=== PATIENT | female | born 2000 | race Native Hawaiian/Other Pacific Islander ===

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

== ENCOUNTER 2019-09-29 11:47 | Emergency (ER) | payer OTHER ==
[2019-09-29 12:00] VITALS: RESP 20
[2019-09-29] MEDS ORDERED: ONDANSETRON 4 MG/2 ML VIAL IVP STA (12:15)
[2019-09-29] MEDS ORDERED: SODIUM CHLORIDE 0.9% 1,000 ML IV STA (12:15)
[2019-09-29] MEDS ORDERED: KETOROLAC 30 MG/ML 1 ML VIAL IVP STA (12:15)
[2019-09-29 12:52] LABS: Basophils % (A) 0 %; Eosinophils % (A) 0 %; HCT 44.3 % (34.0-46.0); HGB 15.3 gm/dL (11.4-16.0); Lymphocytes # (A) 1.3 k/uL (1.0-4.8); Lymphocytes % (A) 9 %; MCH 29.2 pg (25.0-35.0); MCHC 34.5 g/dL (31.0-37.0); MCV 84.8 fL (80.0-100.0); Mean Platelet Volume 5.5; Monocytes # (A) 0.4 k/uL (0-1.0); Monocytes % (A) 3 %; Neutrophils # (A) 12.8 k/uL (1.3-7.7); Neutrophils % (A) 88 %; Platelet Count 318 k/uL (150-450); RBC 5.22 m/uL (3.80-5.40); RDW 12.5 % (11.5-15.5); WBC 14.6 k/uL (4.0-11.0)
[2019-09-29 13:00] LABS: Amorphous Sediment,Urine Rare /hpf; Appearance,Urine Cloudy (Clear); Bacteria,Urine Rare /hpf; Bilirubin,Urine Negative (Negative); Blood,Urine Trace (Negative); Color,Urine Yellow; Glucose,Urine (UA) Negative (Negative); Ketones,Urine Negative (Negative); Leukocyte Esterase,Urine Trace (Negative); Mucus,Urine Rare /hpf; Nitrite,Urine Negative (Negative); PH, Urine 6.5 (5.0-8.0); Protein,Urine Negative (Negative); RBC,Urine 2 /hpf (0-5); Specific Gravity,Urine 1.019 (1.001-1.035); Squamous Epithelial Cell,Urine 1 /hpf (0-4); Urobilinogen,Urine <2.0 mg/dL (<2.0)
--- NOTE | 2019-09-29 13:04 | XR ---
EXAMINATION TYPE: XR chest 2V DATE OF EXAM: 09/29/2019 COMPARISON: NONE HISTORY: Fever. TECHNIQUE: Frontal and lateral views of the chest are obtained. FINDINGS: There is no focal air space opacity, pleural effusion, or pneumothorax seen. The cardiac silhouette size is within normal limits. The osseous structures are intact. IMPRESSION: No acute cardiopulmonary process.
[2019-09-29 13:07] VITALS: PULSE 107
[2019-09-29] MEDS ORDERED: ACETAMINOPHEN TAB 500 MG TAB PO STA (13:08)
[2019-09-29 13:09] LABS: ALT 19 U/L (9-52); AST 20 U/L (14-36); African American GFR (CKD) >90 (>60 ml/min/1.73 sqM); Albumin 4.5 g/dL (3.5-5.0); Alkaline Phosphatase 109 U/L (38-126); Anion Gap 10 mmol/L; Blood Urea Nitrogen 7 mg/dL (7-17); Calcium 10.3 mg/dL (8.4-10.2); Carbon Dioxide 25 mmol/L (22-30); Chloride 103 mmol/L (98-107); Glucose 99 mg/dL (74-99); Non-African American GFR(CKD) >90 (>60 ml/min/1.73 sqM); Potassium 4.3 mmol/L (3.5-5.1); Sodium 138 mmol/L (137-145); Total Bilirubin 0.6 mg/dL (0.2-1.3); Total Protein 7.4 g/dL (6.3-8.2)
--- NOTE | 2019-09-29 13:39 | ED ---
Headache HPI - General Mode of arrival: ambulatory Limitations: no limitations <Deepali Durham - Last Filed: 09/29/19 14:28> <Jarrod Diaz - Last Filed: 09/29/19 14:59> - General Chief Complaint: Headache Stated Complaint: HEADACHE, FEVER, ABDOMINAL PAIN Time Seen by Provider: 09/29/19 11:54 - History of Present Illness Initial Comments: Patient is a 18-year-old female presenting to the emergency Department with complaints of a headache and a fever 1 day. Patient states she was sent over from Dr. Coles's office. Patient states she felt under the weather and also had body aches and a headache yesterday. Patient states she woke up this morning still having a severe headache along with a fever, abdominal pain and vomiting. Patient then went into her doctor's office who then sent her to the ER. Patient states she's never had a headache this bad before. Patient denies any recent coughing, runny nose, chest pain, shortness of breath. Patient has no pertinent past medical history and takes no medications. Patient denies history of abdominal surgeries. Patient has been having regular bowel movements and has no urinary complaints. Patient has no other complaints at this time. Upon arrival to the ER, patient is febrile at 102, heart rate is 136, BP is 134/91, 99% on room air, respiratory rate 20. (Deepali Durham) - Related Data Previous Rx's Medication Instructions Recorded Cephalexin [Keflex] 500 mg PO Q6HR #40 cap 09/08/14 Allergies Allergy/AdvReac Type Severity Reaction Status Date / Time No Known Allergies Allergy Verified 10/29/18 13:44 Review of Systems ROS Other: All systems not noted in ROS Statement are negative. <Deepali Durham - Last Filed: 09/29/19 14:28> ROS Other: All systems not noted in ROS Statement are negative. <Jarrod Diaz - Last Filed: 09/29/19 14:59> ROS Statement: Those systems with pertinent positive or pertinent negative responses have been documented in the HPI. Past Medical History Past Medical History: No Reported History History of Any Multi-Drug Resistant Organisms: None Reported Past Surgical History: No Surgical Hx Reported, Tonsillectomy Past Psychological History: Depression Smoking Status: Never smoker Past Alcohol Use History: None Reported Past Drug Use History: None Reported <Deepali Durham - Last Filed: 09/29/19 14:28> General Exam Limitations: no limitations <Deepali Durham - Last Filed: 09/29/19 14:28> - General Exam Comments Initial Comments: GENERAL: Well-appearing, well-nourished and in no acute distress. HEAD: Atraumatic, normocephalic. EYES: Pupils equal round and reactive to light, extraocular movements intact, sclera anicteric, conjunctiva are normal. ENT: TMs normal, nares patent, oropharynx clear without exudates. Moist mucous memb ranes. NECK: Normal range of motion, supple without lymphadenopathy or JVD. Patient has increased pain with neck flexion. LUNGS: Breath sounds clear to auscultation bilaterally and equal. No wheezes rales or rhonchi. HEART: Regular rate and rhythm without murmurs, rubs or gallops. ABDOMEN: Tender to palpation in the epigastric and right upper quadrant. Soft, normoactive bowel sounds. No guarding, no rebound. No masses appreciated. : Deferred EXTREMITIES: Normal range of motion, no pitting or edema. No clubbing or cyanosis. NEUROLOGICAL: Cranial nerves II through XII grossly intact. Normal speech, normal gait. PSYCH: Normal mood, normal affect. SKIN: Warm, Dry, normal turgor, no rashes or lesions noted. (Deepali Durham) Course Vital Signs 09/29/19 09/29/19 09/29/19 11:56 12:59 13:05 Temperature 102 F H 102.2 F H Pulse Rate 136 H 107 H Respiratory 20 20 Rate Blood Pressure 134/91 124/79 O2 Sat by Pulse 99 98 96 Oximetry 09/29/19 09/29/19 09/29/19 13:10 13:20 13:30 Temperature Pulse Rate Respiratory Rate Blood Pressure 124/79 124/79 124/79 O2 Sat by Pulse 97 98 97 Oximetry 09/29/19 09/29/19 09/29/19 13:40 13:50 14:00 Temperature 101.0 F H Pulse Rate Respiratory 20 Rate Blood Pressure O2 Sat by Pulse 99 98 97 Oximetry 09/29/19 09/29/19 14:10 14:27 Temperature Pulse Rate Respiratory 20 Rate Blood Pressure 118/70 O2 Sat by Pulse 98 Oximetry Medical Decision Making - Lab Data Result diagrams: 09/29/19 12:37 09/29/19 12:37 <Deepali Durham - Last Filed: 09/29/19 14:28> - Lab Data Result diagrams: 09/29/19 12:37 09/29/19 12:37 <Jarrod Diaz - Last Filed: 09/29/19 14:59> - Medical Decision Making Patient is a 18-year-old female presenting with fever and a headache 1 day. Patient was febrile on arrival at 102 and tachycardia at 136. Labs reveal slight leukocytosis at 14.6. CMP is normal. UA shows no acute abnormalities. Influenza is negative. Chest x-ray is normal. Ultrasound of the gallbladder is normal. Case was discussed in detail with Dr. Diaz. Dr. Diaz discussed with patient risks versus benefits of LP and patient declined at this time. Patient is stable for discharge at this time. Patient will continue with Tylenol for fever control. Strict return parameters were discussed with the patient she verbalized understanding. (Deepali Durham) 18-year-old female presenting for evaluation of fever and chills, myalgias, epigastric abdominal pain and headache. Patient is well-appearing on evaluation. She is alert and oriented, she is on her phone. She has had symptoms for 24-48 hours. After antipyretics and IV fluids are heart rate is normalized. Her blood pressure remained stable. I discussed on 2 separate occasions the possibility of meningitis both viral and bacterial. Patient is immunized. I have a very low suspicion for bacterial meningitis but this was still in the differential. I discussed the risks and benefits of lumbar puncture and at this time patient declines. She does have her boyfriend home and prefers to treat her symptoms at home she will return with any worsening or changing symptoms. (Jarrod Diaz) - Lab Data Lab Results 09/29/19 09/29/19 09/29/19 Range/Units 12:37 12:37 12:37 WBC 14.6 H (4.0-11.0) k/uL RBC 5.22 (3.80-5.40) m/uL Hgb 15.3 (11.4-16.0) gm/dL Hct 44.3 (34.0-46.0) % MCV 84.8 (80.0-100.0) fL MCH 29.2 (25.0-35.0) pg MCHC 34.5 (31.0-37.0) g/dL RDW 12.5 (11.5-15.5) % Plt Count 318 (150-450) k/uL Neutrophils % 88 % Lymphocytes % 9 % Monocytes % 3 % Eosinophils % 0 % Basophils % 0 % Neutrophils # 12.8 H (1.3-7.7) k/uL Lymphocytes # 1.3 (1.0-4.8) k/uL Monocytes # 0.4 (0-1.0) k/uL Eosinophils # 0.0 (0-0.7) k/uL Basophils # 0.0 (0-0.2) k/uL Sodium 138 (137-145) mmol/L Potassium 4.3 (3.5-5.1) mmol/L Chloride 103 (98-107) mmol/L Carbon Dioxide 25 (22-30) mmol/L Anion Gap 10 mmol/L BUN 7 (7-17) mg/dL Creatinine 0.67 (0.52-1.04) mg/dL Est GFR (CKD-EPI)AfAm >90 (>60 ml/min/1.73 sqM) Est GFR (CKD-EPI)NonAf >90 (>60 ml/min/1.73 sqM) Glucose 99 (74-99) mg/dL Plasma Lactic Acid Sy (0.7-2.0) mmol/L Calcium 10.3 H (8.4-10.2) mg/dL Total Bilirubin 0.6 (0.2-1.3) mg/dL AST 20 (14-36) U/L ALT 19 (9-52) U/L Alkaline Phosphatase 109 (38-126) U/L Total Protein 7.4 (6.3-8.2) g/dL Albumin 4.5 (3.5-5.0) g/dL Urine Color Urine Appearance (Clear) Urine pH (5.0-8.0) Ur Specific Gordon (1.001-1.035) Urine Protein (Negative) Urine Glucose (UA) (Negative) Urine Ketones (Negative) Urine Blood (Negative) Urine Nitrite (Negative) Urine Bilirubin (Negative) Urine Urobilinogen (<2.0) mg/dL Ur Leukocyte Esterase (Negative) Urine RBC (0-5) /hpf Urine WBC (0-5) /hpf Ur Squamous Epith Cells (0-4) /hpf Amorphous Sediment (None) /hpf Urine Bacteria (None) /hpf Urine Mucus (None) /hpf Urine HCG, Qual Not Detected (Not Detectd) Influenza Type A RNA (Not Detectd) Influenza Type B (PCR) (Not Detectd) 09/29/19 09/29/19 09/29/19 Range/Units 12:37 12:37 12:37 WBC (4.0-11.0) k/uL RBC (3.80-5.40) m/uL Hgb (11.4-16.0) gm/dL Hct (34.0-46.0) % MCV (80.0-100.0) fL MCH (25.0-35.0) pg MCHC (31.0-37.0) g/dL RDW (11.5-15.5) % Plt Count (150-450) k/uL Neutrophils % % Lymphocytes % % Monocytes % % Eosinophils % % Basophils % % Neutrophils # (1.3-7.7) k/uL Lymphocytes # (1.0-4.8) k/uL Monocytes # (0-1.0) k/uL Eosinophils # (0-0.7) k/uL Basophils # (0-0.2) k/uL Sodium (137-145) mmol/L Potassium (3.5-5.1) mmol/L Chloride (98-107) mmol/L Carbon Dioxide (22-30) mmol/L Anion Gap mmol/L BUN (7-17) mg/dL Creatinine (0.52-1.04) mg/dL Est GFR (CKD-EPI)AfAm (>60 ml/min/1.73 sqM) Est GFR (CKD-EPI)NonAf (>60 ml/min/1.73 sqM) Glucose (74-99) mg/dL Plasma Lactic Acid Sy 1.2 (0.7-2.0) mmol/L Calcium (8.4-10.2) mg/dL Total Bilirubin (0.2-1.3) mg/dL AST (14-36) U/L ALT (9-52) U/L Alkaline Phosphatase (38-126) U/L Total Protein (6.3-8.2) g/dL Albumin (3.5-5.0) g/dL Urine Color Yellow Urine Appearance Cloudy H (Clear) Urine pH 6.5 (5.0-8.0) Ur Specific Gordon 1.019 (1.001-1.035) Urine Protein Negative (Negative) Urine Glucose (UA) Negative (Negative) Urine Ketones Negative (Negative) Urine Blood Trace H (Negative) Urine Nitrite Negative (Negative) Urine Bilirubin Negative (Negative) Urine Urobilinogen <2.0 (<2.0) mg/dL Ur Leukocyte Esterase Trace H (Negative) Urine RBC 2 (0-5) /hpf Urine WBC 3 (0-5) /hpf Ur Squamous Epith Cells 1 (0-4) /hpf Amorphous Sediment Rare H (None) /hpf Urine Bacteria Rare H (None) /hpf Urine Mucus Rare H (None) /hpf Urine HCG, Qual (Not Detectd) Influenza Type A RNA Not Detected (Not Detectd) Influenza Type B (PCR) Not Detected (Not Detectd) Disposition Is patient prescribed a controlled substance at d/c from ED?: No <Deepali Durham - Last Filed: 09/29/19 14:28> <Jarrod Diaz - Last Filed: 09/29/19 14:59> Clinical Impression: Headache, Viral syndrome Disposition: HOME SELF-CARE Condition: Stable Instructions (If sedation given, give patient instructions): Acute Headache (ED) Additional Instructions: Please return to the Emergency Department if symptoms worsen or any other concerns. Continue with Tylenol and/or Motrin for pain and fever control. Follow up with Dr. Coles as needed. Referrals: Sophie Coles MD [Primary Care Provider] - 1-2 days
--- NOTE | 2019-09-29 14:02 | US ---
EXAMINATION TYPE: US gallbladder DATE OF EXAM: 09/29/2019 COMPARISON: NONE CLINICAL HISTORY: pain. EXAM MEASUREMENTS: Liver Length: 14.8 cm Gallbladder Wall: 0.2 cm CBD: 0.3 cm Right Kidney: 11.2 x4.9 x 4.9 cm Morbidly obese patient who ate 3 hours prior. Extensive overlying bowel gas. Limited and technically difficult study. Pancreas: Obscured by bowel gas Liver: Increased attenuation, very limited visualization Gallbladder: limited visualization, appears wnl as seen Evidence for sonographic Baires's sign: no CBD: limited visualization, appears wnl as seen Right Kidney: inferior pole obscured by overlying bowel gas, otherwise appears wnl Suboptimal evaluation of pancreas on images saved visualized liver heterogeneously hyperechoic. Evalu ation for focal masses suboptimal. Suboptimal study due to body habitus and nonideal protocol as lidia ent ate 3 hours earlier. Gallbladder however is seen without shadowing mobile gallstones. IMPRESSION: Suboptimal study, no shadowing mobile gallstones identified or ultrasound evidence for ac alysia cholecystitis.
[2019-09-29 14:07] VITALS: TEMP 101
[2019-09-29 14:11] VITALS: BP 118/70
== END 2019-09-29 14:32 | disposition home or self-care (01) ==
LOC: EC 11:47
DX: B34.9 Viral infection, unspecified (principal)
CPT/HCPCS: 36415; 80053; 83605; 85025; 81001; 81025; 87502; 71046; 76705; 99284; 96374; 96375; 96361; J2405; J1885

== ENCOUNTER → 2020-02-22 | Outpatient (CLI) | payer OTHER ==
--- NOTE | 2020-02-22 09:39 | US ---
EXAMINATION TYPE: Ultrasound OB <= 14 week transvaginal DATE OF EXAM: 02/22/2020 9:07 AM COMPARISON: NONE CLINICAL HISTORY: 19 year-old female Bleeding O46.91. Bleeding for 1 week, started to get heavier tod ay EXAM PERFORMED: Transvaginal (TV) and Transabdominal (TA) FINDINGS: EXAM MEASUREMENTS: GESTATIONAL AGE / DATING Physician Established: Not yet established Dates by LMP: (10 weeks/0 days) EDC: 09/19/20 Dates by First Scan: No previous this is first scan Dates by Current Scan for: (9 weeks/1 days) EDC: 09/25/20 MATERNAL ANATOMY Uterus: 8.1 x 4.2 x 6.2cm Right Ovary: 2.1 x 1.5 x 1.6cm Left Ovary: 2.5 x 1.9 x 2.1cm Post CDS / Adnexa: appears wnl Presence of free fluid: no Presence of corpus luteal cyst: cystic area left ovary = 1.4 x 1.4 x 1.5cm GESTATION / SURVEY CRL: 2.4cm (9 weeks/1 days) Yolk Sac (normal less than 6mm): 0.4cm Heart Rate: 167 bpm Rhythm: Normal IUP: Viable IUP Date of LMP: 12/14/19 Beta HcG (if available): Not available at this time Power Sewing Machine Operator notes: single viable IUP 9wks/1day with AURA of 09/25/20. Probable corpus luteum left ovar y. Simple paraovarian cyst right ovary = 1.0 x 0.9 x 1.0cm IMPRESSION: 1. Single live intrauterine with estimated gestational age of 10 weeks 0 days by LMP. Curre nt ultrasound biometry is smaller by 6 days (measured at 9 weeks 1 day by crown-rump length). Follow- up as clinically indicated. 2. No sizable perigestational bleed is identified. 3. Otherwise, complete survey recommended at 18-20 weeks.
== END | disposition home or self-care (01) ==
LOC: RADUSWWP 08:41
PROVIDERS: ATTEND Obstetrics & Gynecology Obstetrics
DX: Z3A.10 10 weeks gestation of pregnancy (principal); O20.0 Threatened abortion
CPT/HCPCS: 36415; 76801; 76817; 84702; 86850; 86900; 86901

== ENCOUNTER → 2020-03-05 | Outpatient (CLI) | payer OTHER | END | disposition home or self-care (01) | LOC: LABWHC1 12:38 | PROVIDERS: ATTEND Obstetrics & Gynecology Obstetrics | DX: U07.1 COVID-19 (principal) | CPT/HCPCS: 87635 ==

== ENCOUNTER → 2020-03-06 | Outpatient (CLI) | payer OTHER | END | disposition home or self-care (01) | LOC: LABWHC1 09:38 | PROVIDERS: ATTEND Obstetrics & Gynecology Obstetrics | DX: Z53.9 Procedure and treatment not carried out, unspecified reason (principal) ==

== ENCOUNTER 2020-03-07 06:22 | Day surgery (SDC) | payer OTHER ==
[2020-03-06 08:54] VITALS: BMI 42.5
[2020-03-06 11:15] LABS: Basophils % (A) 0 %; Eosinophils # (A) 0.1 k/uL (0-0.7); Eosinophils % (A) 2 %; HCT 40.6 % (34.0-46.0); HGB 13.1 gm/dL (11.4-16.0); Lymphocytes # (A) 2.4 k/uL (1.0-4.8); Lymphocytes % (A) 27 %; MCH 28.3 pg (25.0-35.0); MCHC 32.3 g/dL (31.0-37.0); MCV 87.5 fL (80.0-100.0); Mean Platelet Volume 7.4; Monocytes # (A) 0.3 k/uL (0-1.0); Monocytes % (A) 4 %; Neutrophils # (A) 5.6 k/uL (1.3-7.7); Neutrophils % (A) 65 %; Platelet Count 299 k/uL (150-450); RBC 4.64 m/uL (3.80-5.40); RDW 13.1 % (11.5-15.5); WBC 8.6 k/uL (4.0-11.0)
[~2020-03-07 06:22] MED LIST: Pre Op ABX Message 1 EACH MISC MISCELLANE ONE
[2020-03-07] MEDS ORDERED: LACTATED RINGERS 1,000 ML IV ONE (06:40)
[2020-03-07] MEDS ORDERED: LIDOCAINE 1% (10MG/ML) FOR IV START INTRADERMA ONE (06:40)
[2020-03-07] MEDS ORDERED: ONDANSETRON 4 MG/2 ML VIAL IVP ONE (06:44)
[2020-03-07] MEDS ORDERED: DEXAMETHASONE SOD PHOS (MDV) 100 MG/10 ML VIAL IVP ONE (06:45)
[2020-03-07] MEDS ORDERED: KETOROLAC 30 MG/ML 1 ML VIAL ONE (08:03)
[2020-03-07] MEDS ORDERED: PROPOFOL 10 MG/ML 20 ML VIAL IV ONE (08:03)
[2020-03-07] MEDS ORDERED: MIDAZOLAM 2 MG/2 ML VIAL ONE (08:03)
[2020-03-07] MEDS ORDERED: LIDOCAINE 1% INJ 10MG/ML (20 ML MDV) ONE (08:03)
--- NOTE | 2020-03-07 08:33 | P.OP ---
Date of Procedure: 03/07/20 Preoperative Diagnosis: Missed AB Postoperative Diagnosis: Same Procedure(s) Performed: Suction dilation and curettage Anesthesia: MAC Surgeon: Haylee Felder Estimated Blood Loss (ml): 5 IV fluids (ml): 300 Urine output (ml): 100 Pathology: other (Uterine contents) Condition: stable Disposition: PACU Indications for Procedure: This pleasant 19-year-old 1 para 0 seen in the office for routine visit at her new OB visit. Heart tones were not able to be dopplered therefore ultrasound was obtained consistent with missed AB at 9 weeks. Patient elected suction dilation and curettage. Surgery was reviewed risks were explained QUESTIONS were answered. Patient is Rh+ Operative Findings: Moderate amount of products of conception Description of Procedure: Patient was taken back to the operating suite where general anesthesia was obtained without difficulty by the anesthesia . She was prepped and draped in normal sterile fashion in the dorsal lithotomy position. A red rubber catheter was used to drain the bladder of clear yellow urine. Weighted speculum was placed in the posterior vaginal vault the interval of the cervix was visualized and grasped with a single-tooth tenaculum. Endocervical canal was then dilated and an 8 curved suction curette was placed into the endometrial cavity and after multiple passes a moderate amount of products of conception were removed. Sharp curettage was gently performed. The suction curet was placed once again to ensure all products were removed. The uterus was noted to be firm at this time the single-tooth tenaculum was taken off of the anterior lip of the cervix hemostasis was appreciated. Next Patient tolerated procedure well all counts were correct 2 patient was taken the recovery room awake in stable condition.
[2020-03-07 08:43] VITALS: TEMP 98.7
[2020-03-07] MEDS ORDERED: HYDROmorphone 0.5 MG/0.5 ML SYRINGE IVP ONE (09:05)
[2020-03-07 09:24] VITALS: RESP 18
[2020-03-07 09:33] VITALS: BP 116/61; PULSE 82
== END 2020-03-07 10:14 | disposition home or self-care (01) ==
LOC: OR 06:22
PROVIDERS: ATTEND Obstetrics & Gynecology Obstetrics
DX: O02.1 Missed abortion (principal); O99.611 Diseases of the digestive system complicating pregnancy, first trimester; K21.9 Gastro-esophageal reflux disease without esophagitis; Z3A.09 9 weeks gestation of pregnancy; Z90.89 Acquired absence of other organs; Z83.3 Family history of diabetes mellitus; Z83.42 Family history of familial hypercholesterolemia
CPT/HCPCS: 59820; 86900; 86901; 88305; 85025; 86850; 36415; J2250; J2405; J2001; J1885; J1100; J2704; J1170

== ENCOUNTER 2020-04-18 02:29 | Emergency (ER) | payer OTHER ==
[2020-04-18 02:34] VITALS: RESP 20
[2020-04-18] MEDS ORDERED: ONDANSETRON 4 MG/2 ML VIAL IVP STA (03:06)
[2020-04-18] MEDS ORDERED: SODIUM CHLORIDE 0.9% 1,000 ML IV STA (03:06)
--- NOTE | 2020-04-18 03:11 | ED ---
Headache HPI - General Chief Complaint: Headache Stated Complaint: Headache Time Seen by Provider: 04/18/20 02:58 Mode of arrival: ambulatory Limitations: no limitations - History of Present Illness Initial Comments: This patient is 19-year-old woman who presents with complaint of bifrontal headache as well as nasal congestion and pressure. Patient states this is been going on over the past 1-2 days. In addition this afternoon she noted she was having a fever. The patient took an rxju-oef-zcerloe medication which she states relieved the headache and she was able to sleep. When she woke she had some that he then was having vomiting so she presented here. Complaint: headache Onset/Timin -: days(s) Onset Description: gradual Location: right, left, frontal Severity: moderate Quality: other (Pressure) Consistency: constant Improves With: nothing Worsens With: none Associated Symptoms: fever Treatments Prior to Arrival: Ibuprofen - Related Data Previous Rx's Medication Instructions Recorded Amoxicillin 875 mg PO Q12HR #14 tablet 04/18/20 Allergies Allergy/AdvReac Type Severity Reaction Status Date / Time No Known Allergies Allergy Verified 04/18/20 02:33 Review of Systems ROS Statement: Those systems with pertinent positive or pertinent negative responses have been documented in the HPI. ROS Other: All systems not noted in ROS Statement are negative. Constitutional: Reports: fever, chills ENT: Reports: throat pain, congestion Respiratory: Denies: cough, dyspnea Cardiovascular: Denies: chest pain, palpitations Gastrointestinal: Reports: nausea, vomiting. Denies: abdominal pain, diarrhea Genitourinary: Denies: dysuria, frequency, hematuria Musculoskeletal: Denies: back pain Skin: Denies: rash Neurological: Denies: headache, weakness, numbness Past Medical History Past Medical History: No Reported History Additional Past Medical History / Comment(s): MISCARRIAGE History of Any Multi-Drug Resistant Organisms: None Reported Past Surgical History: Tonsillectomy Additional Past Surgical History / Comment(s): d&C Past Anesthesia/Blood Transfusion Reactions: No Reported Reaction Past Psychological History: Anxiety, Depression Smoking Status: Never smoker Past Alcohol Use History: None Reported Past Drug Use History: None Reported - Past Family History Mother Family Medical History: No Reported History General Exam Limitations: no limitations General appearance: alert, in no apparent distress Head exam: Present: atraumatic, normocephalic Eye exam: Present: normal appearance. Absent: scleral icterus, conjunctival injection ENT exam: Present: mucous membranes moist, other (Injection of the pharynx) Neck exam: Present: normal inspection, full ROM, lymphadenopathy. Absent: tenderness, meningismus Respiratory exam: Present: normal lung sounds bilaterally. Absent: respiratory distress, wheezes, rales, rhonchi, stridor Cardiovascular Exam: Present: normal rhythm, tachycardia, normal heart sounds. Absent: systolic murmur, diastolic murmur, rubs, gallop GI/Abdominal exam: Present: soft. Absent: tenderness, guarding, rebound, mass Extremities exam: Present: normal inspection, normal capillary refill. Absent: pedal edema, calf tenderness Back exam: Present: normal inspection. Absent: CVA tenderness (R), CVA tenderness (L) Neurological exam: Present: alert Skin exam: Present: warm, dry, intact, normal color. Absent: rash Course Vital Signs 04/18/20 02:29 Temperature 100.7 F H Pulse Rate 123 H Respiratory 20 Rate Blood Pressure 156/89 O2 Sat by Pulse 98 Oximetry Medical Decision Making - Medical Decision Making Laboratory evaluation, the patient is feeling somewhat better. Her headache resolved to only minimal residual. I did discuss that the only way to rule out meningitis is to perform lumbar puncture, and the patient does not want to have that performed at this time. Again there is no nuchal rigidity or neck pain. Patient does agree to return should she be worsening in anyway. I did discuss further follow-up and management of acute sinusitis. I did provide antibiotic to take should her symptoms persist, but not to take until that stage. - Lab Data Result diagrams: 04/18/20 03:04 04/18/20 03:04 Lab Results 04/18/20 04/18/20 04/18/20 Range/Units 03:04 03:04 03:04 WBC 18.1 H (4.0-11.0) k/uL RBC 5.05 (3.80-5.40) m/uL Hgb 14.1 (11.4-16.0) gm/dL Hct 43.5 (34.0-46.0) % MCV 86.3 (80.0-100.0) fL MCH 27.9 (25.0-35.0) pg MCHC 32.4 (31.0-37.0) g/dL RDW 12.6 (11.5-15.5) % Plt Count 277 (150-450) k/uL Neutrophils % 93 % Lymphocytes % 4 % Monocytes % 2 % Eosinophils % 0 % Basophils % 0 % Neutrophils # 16.8 H (1.3-7.7) k/uL Lymphocytes # 0.7 L (1.0-4.8) k/uL Monocytes # 0.4 (0-1.0) k/uL Eosinophils # 0.0 (0-0.7) k/uL Basophils # 0.0 (0-0.2) k/uL Sodium 136 L (137-145) mmol/L Potassium 4.0 (3.5-5.1) mmol/L Chloride 104 (98-107) mmol/L Carbon Dioxide 24 (22-30) mmol/L Anion Gap 8 mmol/L BUN 9 (7-17) mg/dL Creatinine 0.73 (0.52-1.04) mg/dL Est GFR (CKD-EPI)AfAm >90 (>60 ml/min/1.73 sqM) Est GFR (CKD-EPI)NonAf >90 (>60 ml/min/1.73 sqM) Glucose 114 H (74-99) mg/dL Calcium 9.6 (8.4-10.2) mg/dL Total Bilirubin 0.4 (0.2-1.3) mg/dL AST 23 (14-36) U/L ALT 21 (4-34) U/L Alkaline Phosphatase 104 (38-126) U/L Total Protein 7.6 (6.3-8.2) g/dL Albumin 4.5 (3.5-5.0) g/dL Urine Color Urine Appearance (Clear) Urine pH (5.0-8.0) Ur Specific [place] (1.001-1.035) Urine Protein (Negative) Urine Glucose (UA) (Negative) Urine Ketones (Negative) Urine Blood (Negative) Urine Nitrite (Negative) Urine Bilirubin (Negative) Urine Urobilinogen (<2.0) mg/dL Ur Leukocyte Esterase (Negative) Urine RBC (0-5) /hpf Urine WBC (0-5) /hpf Ur Squamous Epith Cells (0-4) /hpf Amorphous Sediment (None) /hpf Urine Mucus (None) /hpf Urine HCG, Qual (Not Detectd) Heterophile Antibody Negative (Negative) Group A Strep Rapid (Negative) 04/18/20 04/18/20 04/18/20 Range/Units 03:15 03:18 03:18 WBC (4.0-11.0) k/uL RBC (3.80-5.40) m/uL Hgb (11.4-16.0) gm/dL Hct (34.0-46.0) % MCV (80.0-100.0) fL MCH (25.0-35.0) pg MCHC (31.0-37.0) g/dL RDW (11.5-15.5) % Plt Count (150-450) k/uL Neutrophils % % Lymphocytes % % Monocytes % % Eosinophils % % Basophils % % Neutrophils # (1.3-7.7) k/uL Lymphocytes # (1.0-4.8) k/uL Monocytes # (0-1.0) k/uL Eosinophils # (0-0.7) k/uL Basophils # (0-0.2) k/uL Sodium (137-145) mmol/L Potassium (3.5-5.1) mmol/L Chloride (98-107) mmol/L Carbon Dioxide (22-30) mmol/L Anion Gap mmol/L BUN (7-17) mg/dL Creatinine (0.52-1.04) mg/dL Est GFR (CKD-EPI)AfAm (>60 ml/min/1.73 sqM) Est GFR (CKD-EPI)NonAf (>60 ml/min/1.73 sqM) Glucose (74-99) mg/dL Calcium (8.4-10.2) mg/dL Total Bilirubin (0.2-1.3) mg/dL AST (14-36) U/L ALT (4-34) U/L Alkaline Phosphatase (38-126) U/L Total Protein (6.3-8.2) g/dL Albumin (3.5-5.0) g/dL Urine Color Yellow Urine Appearance Turbid H (Clear) Urine pH 8.0 (5.0-8.0) Ur Specific [place] 1.025 (1.001-1.035) Urine Protein Trace H (Negative) Urine Glucose (UA) Negative (Negative) Urine Ketones Trace H (Negative) Urine Blood Trace H (Negative) Urine Nitrite Negative (Negative) Urine Bilirubin Negative (Negative) Urine Urobilinogen <2.0 (<2.0) mg/dL Ur Leukocyte Esterase Small H (Negative) Urine RBC 5 (0-5) /hpf Urine WBC 5 (0-5) /hpf Ur Squamous Epith Cells 4 (0-4) /hpf Amorphous Sediment Rare H (None) /hpf Urine Mucus Occasional H (None) /hpf Urine HCG, Qual Not Detected (Not Detectd) Heterophile Antibody (Negative) Group A Strep Rapid Negative (Negative) Disposition Clinical Impression: Acute sinusitis Disposition: HOME SELF-CARE Condition: Good Instructions (If sedation given, give patient instructions): Sinusitis (ED) Prescriptions: Amoxicillin 875 mg PO Q12HR #14 tablet Is patient prescribed a controlled substance at d/c from ED?: No Referrals: Sophie Coles MD [Primary Care Provider] - 1-2 days
[2020-04-18 03:29] LABS: Amorphous Sediment,Urine Rare /hpf; Appearance,Urine Turbid (Clear); Bilirubin,Urine Negative (Negative); Blood,Urine Trace (Negative); Color,Urine Yellow; Glucose,Urine (UA) Negative (Negative); Ketones,Urine Trace (Negative); Leukocyte Esterase,Urine Small (Negative); Mucus,Urine Occasional /hpf; Nitrite,Urine Negative (Negative); Protein,Urine Trace (Negative); RBC,Urine 5 /hpf (0-5); Specific Gravity,Urine 1.025 (1.001-1.035); Squamous Epithelial Cell,Urine 4 /hpf (0-4); Urobilinogen,Urine <2.0 mg/dL (<2.0); WBC,Urine 5 /hpf (0-5)
[2020-04-18 04:17] LABS: Basophils % (A) 0 %; Eosinophils % (A) 0 %; HCT 43.5 % (34.0-46.0); HGB 14.1 gm/dL (11.4-16.0); Lymphocytes # (A) 0.7 k/uL (1.0-4.8); Lymphocytes % (A) 4 %; MCH 27.9 pg (25.0-35.0); MCHC 32.4 g/dL (31.0-37.0); MCV 86.3 fL (80.0-100.0); Mean Platelet Volume 7.5; Monocytes # (A) 0.4 k/uL (0-1.0); Monocytes % (A) 2 %; Neutrophils # (A) 16.8 k/uL (1.3-7.7); Neutrophils % (A) 93 %; Platelet Count 277 k/uL (150-450); RBC 5.05 m/uL (3.80-5.40); RDW 12.6 % (11.5-15.5); WBC 18.1 k/uL (4.0-11.0)
[2020-04-18 04:21] LABS: ALT 21 U/L (4-34); AST 23 U/L (14-36); African American GFR (CKD) >90 (>60 ml/min/1.73 sqM); Albumin 4.5 g/dL (3.5-5.0); Alkaline Phosphatase 104 U/L (38-126); Anion Gap 8 mmol/L; Blood Urea Nitrogen 9 mg/dL (7-17); Calcium 9.6 mg/dL (8.4-10.2); Carbon Dioxide 24 mmol/L (22-30); Chloride 104 mmol/L (98-107); Glucose 114 mg/dL (74-99); Non-African American GFR(CKD) >90 (>60 ml/min/1.73 sqM); Sodium 136 mmol/L (137-145); Total Bilirubin 0.4 mg/dL (0.2-1.3); Total Protein 7.6 g/dL (6.3-8.2)
--- NOTE | 2020-04-18 04:23 | XR ---
EXAMINATION TYPE: XR chest 2V DATE OF EXAM: 04/18/2020 COMPARISON: 09/29/2019 HISTORY: Fever. FINDINGS: Heart and mediastinum are normal. Lungs are clear. Diaphragm is normal. Bony thorax appears normal. P ulmonary vascularity is normal. IMPRESSION: Normal chest. No change.
[2020-04-18] MEDS ORDERED: IBUPROFEN 400 MG TAB PO STA (04:49)
[2020-04-18] MEDS ORDERED: ACETAMINOPHEN TAB 325 MG TAB PO STA (04:49)
[2020-04-18 05:31] VITALS: BP 130/75; PULSE 124; TEMP 102.3
== END 2020-04-18 05:32 | disposition home or self-care (01) ==
LOC: EC 02:29
DX: J01.90 Acute sinusitis, unspecified (principal); Z20.828 Contact with and (suspected) exposure to other viral communicable diseases
CPT/HCPCS: 36415; 80053; 85025; 86308; 81001; 81025; 87081; 87430; 71046; 99284; 96374; 96361 ×2; U0003; J2405

== ENCOUNTER 2021-09-02 15:46 | Emergency (ER) | payer OTHER ==
--- NOTE | 2021-09-02 19:27 | ED ---
General Adult HPI - General Chief complaint: Vaginal Bleeding Stated complaint: 8 Wks Preg,Vaginal Bleeding Time Seen by Provider: 09/02/21 18:39 Source: patient, RN notes reviewed Mode of arrival: ambulatory Limitations: no limitations - History of Present Illness Initial comments: 20-year-old female, , presents to the emergency department for evaluation of vaginal bleeding. Patient states she is 8 weeks and had a transvaginal ultrasound done yesterday at the care clinic in [facility]. States she woke up this morning with light red spotting and is concerned because she has a history of a prior miscarriage. Has an appointment scheduled next week to see her [facility]. LMP 07/10/21. Patient denies fever, chills, headache, chest pain, abdominal pain or cramping, and dysuria. - Related Data Home Medications Medication Instructions Recorded Confirmed Aspirin EC [Ecotrin Low Dose] 81 mg PO DAILY 09/02/21 09/02/21 Hwl-Rrfp-Unyej Acid 1 cap PO DAILY 09/02/21 09/02/21 [-U Capsule (formulary)] Allergies Allergy/AdvReac Type Severity Reaction Status Date / Time No Known Allergies Allergy Verified 09/02/21 20:40 Review of Systems ROS Statement: Those systems with pertinent positive or pertinent negative responses have been documented in the HPI. ROS Other: All systems not noted in ROS Statement are negative. Past Medical History Past Medical History: No Reported History Additional Past Medical History / Comment(s): MISCARRIAGE History of Any Multi-Drug Resistant Organisms: None Reported Past Surgical History: Tonsillectomy Additional Past Surgical History / Comment(s): d&C Past Anesthesia/Blood Transfusion Reactions: No Reported Reaction Past Psychological History: Anxiety, Depression Smoking Status: Never smoker Past Alcohol Use History: None Reported Past Drug Use History: None Reported - Past Family History Mother Family Medical History: No Reported History General Exam Limitations: no limitations (Well-developed, well-nourished female in no acute distress. Initial temperature 98.2, pulse 68, respirations 20, blood pressure 127/79, pulse ox 95% on room air.) General appearance: alert, in no apparent distress Respiratory exam: Present: normal lung sounds bilaterally. Absent: respiratory distress, wheezes, rales, rhonchi, stridor Cardiovascular Exam: Present: regular rate, normal rhythm, normal heart sounds. Absent: systolic murmur, diastolic murmur, rubs, gallop, clicks GI/Abdominal exam: Present: soft, normal bowel sounds. Absent: distended, tenderness, guarding, rebound, rigid Speculum exam: Present: normal speculum exam. Absent: erythema, cervical discharge, vaginal bleeding Neurological exam: Present: alert, oriented X3, CN II-XII intact Psychiatric exam: Present: normal affect, normal mood Skin exam: Present: warm, dry, intact, normal color. Absent: rash Course Vital Signs 09/02/21 09/02/21 16:26 23:23 Temperature 98.2 F 98.4 F Pulse Rate 68 72 Respiratory 20 18 Rate Blood Pressure 127/79 127/69 O2 Sat by Pulse 95 99 Oximetry Medical Decision Making - Medical Decision Making 20-year-old female, , with a history of previous miscarriage was evaluated for complaints of light red vaginal bleeding, onset this morning. Per patient, last menstrual period began July 10 making her approximately 8 weeks . No significant physical exam findings. Speculum exam reveals no vaginal bleeding or discharge at this time. Cervical os is closed. Vital signs are stable. Patient is afebrile and not tachycardic. She is not having pain or cramping. Urinalysis is negative. Ultrasound was obtained to verify heart tones. This case was discussed with my attending Dr. Ceja. Patient is scheduled to see her [facility] next week for her initial visit. Return parameters were discussed in detail. Patient verbalizes understanding and agrees with this plan. - Lab Data Lab Results 09/02/21 Range/Units 19:32 Urine Color Light Yellow Urine Appearance Clear (Clear) Urine pH 5.5 (5.0-8.0) Ur Specific [place] 1.008 (1.001-1.035) Urine Protein Negative (Negative) Urine Glucose (UA) Negative (Negative) Urine Ketones Negative (Negative) Urine Blood Negative (Negative) Urine Nitrite Negative (Negative) Urine Bilirubin Negative (Negative) Urine Urobilinogen <2.0 (<2.0) mg/dL Ur Leukocyte Esterase Moderate H (Negative) Urine RBC 1 (0-5) /hpf Urine WBC 2 (0-5) /hpf Ur Squamous Epith Cells 1 (0-4) /hpf Urine Mucus Rare H (None) /hpf Disposition Clinical Impression: Bleeding in early Disposition: HOME SELF-CARE Condition: Stable Instructions (If sedation given, give patient instructions): Threatened Miscarriage (ED) Additional Instructions: Pelvic rest (no intercourse). Increase fluids. Keep appointment as scheduled with [facility]. Return to the emergency department with any new, worsening, or concerning symptoms. Is patient prescribed a controlled substance at d/c from ED?: No Referrals: Sophie Coles MD [Primary Care Provider] - 1-2 days Time of Disposition: 22:21
[2021-09-02 19:53] LABS: Appearance,Urine Clear (Clear); Bilirubin,Urine Negative (Negative); Blood,Urine Negative (Negative); Color,Urine Light Yellow; Glucose,Urine (UA) Negative (Negative); Ketones,Urine Negative (Negative); Leukocyte Esterase,Urine Moderate (Negative); Mucus,Urine Rare /hpf; Nitrite,Urine Negative (Negative); PH, Urine 5.5 (5.0-8.0); Protein,Urine Negative (Negative); RBC,Urine 1 /hpf (0-5); Specific Gravity,Urine 1.008 (1.001-1.035); Squamous Epithelial Cell,Urine 1 /hpf (0-4); Urobilinogen,Urine <2.0 mg/dL (<2.0); WBC,Urine 2 /hpf (0-5)
--- NOTE | 2021-09-02 22:14 | US ---
EXAMINATION TYPE: US OB limited DATE OF EXAM: 09/02/2021 COMPARISON: NONE for this . CLINICAL HISTORY: Vaginal Bleeding. Vaginal bleeding. Hx miscarriage, D and C. . EXAM PERFORMED: Transabdominal (TA) GESTATIONAL AGE / DATING Physician Established: (8 weeks/3 days) EDC: 04/11/2022 No growth performed on today?s study per ordering physician SURVEY HEART RATE: 163 bpm, a second measurement of 162 bpm. RHYTHM: Normal IMPRESSION: The ultrasound gestational age is 8 weeks and 3 days. Fetus is living.
[2021-09-02 23:24] VITALS: BP 127/69; PULSE 72; RESP 18; TEMP 98.4
== END 2021-09-02 23:17 | disposition home or self-care (01) ==
LOC: EC 15:46
DX: O20.9 Hemorrhage in early pregnancy, unspecified (principal); Z3A.08 8 weeks gestation of pregnancy
CPT/HCPCS: 76815; 81001; 99284

== ENCOUNTER 2022-04-17 17:56 | Outpatient (CLI) | payer OTHER ==
[2022-04-17 18:41] LABS: Appearance,Urine Clear (Clear); Bilirubin,Urine Negative (Negative); Blood,Urine Negative (Negative); Color,Urine Light Yellow; Glucose,Urine (UA) Negative (Negative); Ketones,Urine Negative (Negative); Leukocyte Esterase,Urine Trace (Negative); Mucus,Urine Rare /hpf; Nitrite,Urine Negative (Negative); PH, Urine 6.5 (5.0-8.0); Protein,Urine Negative (Negative); RBC,Urine <1 /hpf (0-5); Specific Gravity,Urine 1.005 (1.001-1.035); Squamous Epithelial Cell,Urine <1 /hpf (0-4); Urobilinogen,Urine <2.0 mg/dL (<2.0); WBC,Urine 1 /hpf (0-5)
[2022-04-17 19:13] VITALS: BP 142/91; PULSE 87; RESP 16; TEMP 98.3
--- NOTE | 2022-04-18 10:59 | P.MSEPDOC ---
Presenting Problems - Arrival Data Date of Arrival on Unit: 04/17/22 Time of Arrival on Unit: 17:56 Mode of Transport: Ambulatory - Complaint OB-Reason for Admission/Chief Complaint: Signs/Symptoms UTI Comment: pt here with c/o of burning and frequency with urination, abd soft and non tender, left flank pain noted, pt denies complications during , denies lof, reports loss of mucous plug last night, denies regular contractions and reports + fm Medical History - Information : 1 Para: 0 Term: 0 : 0 Abortions: Spontaneous or Elective: 0 Number of Living Children: 0 - Gestational Age Gestational Age by AURA (wks/days): 40 Weeks and 1 Days Review of Systems - Review of Systems Constitutional: No problems Breast: No problems ENT: No problems Cardiovascular: No problems Respiratory: No problems Gastrointestinal: No problems Genitourinary: Increased frequency Musculoskeletal: No problems Neurological: No problems Skin: No problems Vital Signs - Temperature Temperature: 98.3 F - Pulse Right Brachial Pulse Rate: 87 Pulse Assessment Method: Automatic Cuff - Respirations Respiratory Rate: 16 Oxygen Delivery Method: Room Air - Blood Pressure Right Arm Blood Pressure: 142/91 Blood Pressure Mean: 108 Blood Pressure Source: Automatic Cuff - Comment Vital Signs Comment: BP recheck 139/87 130/79 Medical Screen Scoring - Assessment - Baby A Baseline FHR: 135 Heart Rate - NICHD Category: Category I (Normal) NST: Reactive Physician Notification - Physician Notified Physician Notified Date: 04/17/22 Physician Notified Time: 18:50 Physician: Chuy Costello New Order Received: Yes (dc home) Maternal Triage Index - Non-Urgent/Priority 4 Non-Urgent Priority 4: Yes Criteria Met for Priority 4: reviewed u/a results with dr costello, pt ok to dc home at this time Disposition - Disposition OB Disposition: Discharge to home, Written follow up instructions reviewed Discharge Date: 04/17/22 Discharge Time: 19:00 I agree with the RN Medical Screening Exam: Yes Physician's MSE Comment: I have neither seen nor examined the patient. Case reviewed; plan agreed upon as documented in EMR&OBIX.: Yes Diagnosis: RELATED CONDITIONS, UNSPECIFIED, THIRD TRIMESTER
== END 2022-04-17 19:00 | disposition home or self-care (01) ==
LOC: FBPOP 17:56
PROVIDERS: ATTEND Obstetrics & Gynecology
DX: O26.93 Pregnancy related conditions, unspecified, third trimester (principal); Z3A.40 40 weeks gestation of pregnancy
CPT/HCPCS: 59025; 81001; G0463; 99213

== ENCOUNTER 2022-04-18 19:10 | Inpatient (IN) | payer OTHER ==
[2022-04-18] MEDS ORDERED: TERBUTALINE 1 MG/ML VIAL SQ PRN (19:40)
[2022-04-18] MEDS ORDERED: CARBOPROST TROMETHAMINE 250 MCG/ML 1 ML AMP IM PRN (19:40)
[2022-04-18] MEDS ORDERED: LIDOCAINE 0.5% (PF) 5 MG/ML (50 ML SDV) SQ PRN (19:40)
[2022-04-18] MEDS ORDERED: METHYLERGONOVINE 0.2 MG/ML 1 ML AMP IM PRN (19:40)
[2022-04-18] MEDS ORDERED: OXYTOCIN 10 UNIT/ML 1 ML VIAL IM PRN (19:40)
[2022-04-18] MEDS: LACTATED RINGERS 1,000 ML IV SCH (20:20)
[2022-04-18 20:21] LABS: ALT 13 U/L (4-34); AST 20 U/L (14-36); African American GFR (CKD) >90 (>60 ml/min/1.73 sqM); Blood Urea Nitrogen 5 mg/dL (7-17); LDH 485 U/L (313-618); Non-African American GFR(CKD) >90 (>60 ml/min/1.73 sqM); Uric Acid 4.7 mg/dL (3.7-7.4)
[2022-04-18 20:40] LABS: Appearance,Urine Clear (Clear); Bilirubin,Urine Negative (Negative); Blood,Urine Small (Negative); Color,Urine Light Yellow; Glucose,Urine (UA) Negative (Negative); Ketones,Urine Negative (Negative); Leukocyte Esterase,Urine Moderate (Negative); Mucus,Urine Rare /hpf; Nitrite,Urine Negative (Negative); PH, Urine 7.5 (5.0-8.0); Protein,Urine Negative (Negative); RBC,Urine 18 /hpf (0-5); Squamous Epithelial Cell,Urine 2 /hpf (0-4); Urobilinogen,Urine <2.0 mg/dL (<2.0); WBC,Urine 12 /hpf (0-5)
[2022-04-18 20:55] LABS: Creatinine,Urine Random 53.7 mg/dL; Protein/Creatinine Ratio,Urine 0.168
[2022-04-18 20:56] LABS: Basophils # (A) 0.1 k/uL (0-0.2); Basophils % (A) 0 %; Eosinophils # (A) 0.1 k/uL (0-0.7); Eosinophils % (A) 1 %; HCT 36.9 % (34.0-46.0); HGB 12.7 gm/dL (11.4-16.0); Lymphocytes # (A) 2.1 k/uL (1.0-4.8); Lymphocytes % (A) 13 %; MCH 30.3 pg (25.0-35.0); MCHC 34.5 g/dL (31.0-37.0); MCV 87.8 fL (80.0-100.0); Mean Platelet Volume 8.7; Monocytes # (A) 0.4 k/uL (0-1.0); Monocytes % (A) 3 %; Neutrophils % (A) 82 %; Platelet Count 227 k/uL (150-450); RDW 13.2 % (11.5-15.5); WBC 15.9 k/uL (3.8-10.6)
[2022-04-18] MEDS ORDERED: BUTORPHANOL 1 MG/ML 1 ML VIAL IV PRN (22:47)
--- NOTE | 2022-04-18 22:53 | P.HPOB ---
History of Present Illness H&P Date: 04/18/22 Chief Complaint: 40-2/7 weeks, active labor The patient is a 21-year-old 2 para 0010 admitted at 40-2/7 weeks by last menstrual period and confirmed by second trimester ultrasound. She is admitted in early active labor with all signs reassuring. Her has b een uncomplicated and group B strep status is negative. On labor and delivery, all signs reassuring with a category 1 heart rate tracing. Obstetrical history: 2 para 0010 with current statistics listed in history of present illness. EDC of 04/16/2022 was established by last menstrual period and confirmed by second trimester ultrasound. Laboratory workup demonstrates a blood type of B+ with a negative antibody screen. Rubella status is immune. The remainder of the laboratory workup was within normal limits. Early Glucola was within normal limits and second trimester was also within normal limits. Group B strep status is negative. Gynecologic history: Unremarkable with no history of any infections to include STDs. Review of Systems Review of systems is within normal limits. Past Medical History Past Medical History: No Reported History Additional Past Medical History / Comment(s): MISCARRIAGE History of Any Multi-Drug Resistant Organisms: None Reported Past Surgical History: Tonsillectomy Additional Past Surgical History / Comment(s): d&C Past Anesthesia/Blood Transfusion Reactions: No Reported Reaction Past Psychological History: Anxiety, Depression Smoking Status: Never smoker Past Alcohol Use History: None Reported Past Drug Use History: None Reported - Past Family History Mother Family Medical History: No Reported History Medications and Allergies Home Medications Medication Instructions Recorded Confirmed Type Lar-Jouq-Uhrvy Acid 1 cap PO DAILY 09/02/21 04/17/22 History [-U Capsule (formulary)] Allergies Allergy/AdvReac Type Severity Reaction Status Date / Time No Known Allergies Allergy Verified 04/18/22 19:19 Exam Vital Signs Temp Pulse Resp BP Pulse Ox 04/18/22 19:40 98.0 F 104 H 16 177/97 97 04/18/22 19:18 98.0 F 104 H 16 177/97 97 Intake and Output 04/18/22 04/18/22 04/18/22 06:59 14:59 22:59 Other: Weight 127.006 kg In general, this is a well-developed, mild to moderately obese white female in no acute distress. Her heart has a regular rhythm and rate without murmur. Her lungs are clear to auscultation bilaterally in all [place]. Her abdomen is grav id, nondistended, has normal active bowel sounds, soft, nontender, and without any palpable masses aside from the uterine fundus. Her extremities are without any cyanosis, clubbing, or significant edema and are nontender to palpation bilaterally. Digital cervical examination demonstrates her surgery approximate 7 cm dilated, 90% effaced, with the vertex in presentation at -1 station. Artificial rupture membranes is carried out demonstrating clear fluid. Results Result Diagrams: 04/18/22 19:56 04/18/22 19:56 Abnormal Lab Results - Last 24 Hours (Table) 04/18/22 04/18/22 04/18/22 Range/Units 19:56 :56 20:00 WBC 15.9 H (3.8-10.6) k/uL Neutrophils # 13.0 H (1.3-7.7) k/uL BUN 5 L (7-17) mg/dL Urine Blood Small H (Negative) Ur Leukocyte Esterase Moderate H (Negative) Urine RBC 18 H (0-5) /hpf Urine WBC 12 H (0-5) /hpf Urine Mucus Rare H (None) /hpf Assessment and Plan (1) Active labor at term Current Visit: Yes Status: Acute Code(s): [id number] - SNOMED Code(s): 06485144 Plan: The patient is admitted for active management of labor. She will have close maternal surveillance and expectant management will be practiced. She is a good candidate for either IV or epidural analgesia, whichever she may choose.
[2022-04-19] MEDS: LACTATED RINGERS 1,000 ML IV SCH (00:03)
[2022-04-19] MEDS ORDERED: HYDROcodone/APAP 5-325MG 1 EACH TAB PO PRN (03:48)
[2022-04-19] MEDS ORDERED: HYDROCORTISONE 2.5% RECTAL CREAM 30 GM TUBE RECTAL PRN (03:48)
[2022-04-19] MEDS ORDERED: SIMETHICONE 80 MG CHEWABLE PO PRN (03:48)
[2022-04-19] MEDS ORDERED: diphenhydrAMINE 50 MG/ML 1 ML VIAL IVP PRN ×2 (03:48)
[2022-04-19] MEDS ORDERED: BENZOCAINE/MENTHOL SPRAY 1 GM/SPRAY AEROSOL TOPICAL PRN (03:48)
[2022-04-19] MEDS ORDERED: ZOLPIDEM 5 MG TAB PO PRN (03:48)
[2022-04-19] MEDS ORDERED: ACETAMINOPHEN TAB 325 MG TAB PO PRN (03:48)
[2022-04-19] MEDS ORDERED: LANOLIN CREAM 5 GM TUBE TOPICAL PRN (03:48)
[2022-04-19] MEDS ORDERED: HYDROcodone/APAP 7.5-325MG 1 EACH TAB PO PRN (03:48)
[2022-04-19] MEDS ORDERED: diphenhydrAMINE 50 MG CAP PO PRN (03:48)
[2022-04-19] MEDS ORDERED: diphenhydrAMINE 25 MG CAP PO PRN (03:48)
--- NOTE | 2022-04-19 03:52 | P.PROBDLV ---
Vaginal Delivery Note - . Vaginal Delivery Note: The patient is a 21-year-old 2 para 0010 admitted at 40-12/07 I good dating parameters perches admitted in early active labor with all signs reassuring. Her has been essentially uncomplicated and group B strep status is negative. On labor and delivery, she made progress into the active phase of labor and had artificial rupture of membranes at approximately 7 cm of dilation at which time there is a suggestion of light meconium-stained fluid. She had an epidural catheter placed for analgesia. She then progressed slowly over the next several hours to complete and pushed over the course of approximately 1 hour to a normal spontaneous vaginal delivery of a viable 6 lbs. 9 oz. baby girl delivered in the right occiput anterior position. There was a loose nuchal cord 1 which was reduced on the perineum. There was noted to be thick meconium-stained fluid after the baby's head was delivered. The placenta was delivered spontaneously, intact, and grossly normal though it was deeply meconium stained. There was a grossly normal three-vessel cord inserted approximately 3 cm from the margin of the placental disc. It was a second- degree midline perineal laceration was repaired in standard fashion using 3-0 chromic catgut without difficulty. Estimated blood loss for the case was approximately 300 mL. There were no complications. All sponge, instrument, needle counts were correct. Both mother and are resting comfortably in recovery though the has been taken to the special care nursery for observation secondary to some tachypnea and retracting of intercostal muscles with breathing.
[2022-04-19] MEDS ORDERED: OXYTOCIN 30 UNITS/500 ML NS 30 UNIT in SALINE 1 500ML.BAG IV SCH (04:00)
[2022-04-19] MEDS: IBUPROFEN 600 MG TAB PO PRN ×4 (04:43→22:40)
[2022-04-19] MEDS: SENNOSIDES-DOCUSATE SODIUM 1 EACH TAB PO SCH ×2 (20:02→20:03)
[2022-04-20 07:16] LABS: Basophils % (A) 0 %; Eosinophils # (A) 0.1 k/uL (0-0.7); Eosinophils % (A) 1 %; HCT 32.3 % (34.0-46.0); HGB 10.8 gm/dL (11.4-16.0); Lymphocytes # (A) 2.3 k/uL (1.0-4.8); Lymphocytes % (A) 23 %; MCHC 33.4 g/dL (31.0-37.0); Mean Platelet Volume 8.2; Monocytes # (A) 0.3 k/uL (0-1.0); Monocytes % (A) 3 %; Neutrophils # (A) 7.3 k/uL (1.3-7.7); Neutrophils % (A) 71 %; Platelet Count 192 k/uL (150-450); RBC 3.59 m/uL (3.80-5.40); RDW 13.6 % (11.5-15.5); WBC 10.2 k/uL (3.8-10.6)
[2022-04-20] MEDS: SENNOSIDES-DOCUSATE SODIUM 1 EACH TAB PO SCH ×2 (08:53→20:00)
--- NOTE | 2022-04-20 13:10 | P.PNOBGVD ---
Subjective - Subjective Principal diagnosis: day one, status post normal spontaneous vaginal delivery Interval history: Patient is doing well . She is ambulating and voiding without difficulty. She is tolerating regular diet without nausea or vomiting. Lochia is moderate. She is pumping as the nursery is in the special care nursery for oxygen treatment. Patient had thick meconium-stained fluid upon delivery. Patient reports: Reports appetite normal, Reports voiding normally, Reports pain well controlled, Reports ambulating normally [place]: doing well Objective - Latest Vital Signs Latest vital signs: Vital Signs Temp Pulse Resp BP Pulse Ox 04/20/22 12:00 97.4 F L 92 16 131/72 04/20/22 08:00 98.5 F 97 16 123/77 04/20/22 00:00 98.5 F 93 16 116/69 98 04/19/22 20:00 98.3 F 95 18 116/77 100 04/19/22 16:00 98.2 F 92 16 123/82 Intake and Output 04/19/22 04/20/22 04/20/22 22:59 06:59 14:59 Other: # Voids 1 - Exam Extremities: Present: normal, edema Abdomen: Present: normal appearance Uterus: Present: normal, firm - Labs Labs: Abnormal Lab Results - Last 24 Hours (Table) 04/20/22 Range/Units 07:02 RBC 3.59 L (3.80-5.40) m/uL Hgb 10.8 L (11.4-16.0) gm/dL Hct 32.3 L (34.0-46.0) % Assessment and Plan (1) Active labor at term Current Visit: Yes Status: Acute Code(s): [id number] - SNOMED Code(s): 91976991 (2) Meconium in amniotic fluid affecting management of mother Current Visit: Yes Status: Acute Code(s): O36.8990 - MATERNAL CARE FOR OTH PROBLEMS, UNSP TRIMESTER, UNSP SNOMED Code(s): 19731632 (3) Normal spontaneous vaginal delivery Current Visit: Yes Status: Acute Code(s): O80 - ENCOUNTER FOR FULL-TERM UNCOMPLICATED DELIVERY SNOMED Code(s): 78289190 (4) Nuchal cord, delivered, current hospitalization Current Visit: Yes Status: Acute Code(s): O69.81X0 - LABOR AND DEL COMP BY CORD AROUND NECK, W/O COMPRSN, UNSP SNOMED Code(s): 271105736 (5) Perineal laceration during delivery Current Visit: Yes Status: Acute Code(s): O70.9 - PERINEAL LACERATION DURING DELIVERY, UNSPECIFIED SNOMED Code(s): 791851381 Plan: Patient is doing well . Infant remains in special care nursery for oxygen treatment but doing well. Anticipate discharge home tomorrow. Continue routine care.
[2022-04-21] MEDS: IBUPROFEN 600 MG TAB PO PRN (00:05)
--- NOTE | 2022-04-21 07:12 | P.DS ---
Providers Date of admission: 04/18/22 19:35 Expected date of discharge: 04/21/22 Attending physician: Haylee Felder Primary care physician: Stated None - Discharge Diagnosis(es) (1) Active labor at term Current Visit: Yes Status: Acute (2) Meconium in amniotic fluid affecting management of mother Current Visit: Yes Status: Acute (3) Normal spontaneous vaginal delivery Current Visit: Yes Status: Acute (4) Nuchal cord, delivered, current hospitalization Current Visit: Yes Status: Acute (5) Perineal laceration during delivery Current Visit: Yes Status: Acute Hospital Course: 21-year-old admitted at 40-2/7 weeks in active labor. Patient had been receiving routine care with been essentially uncomplicated. Patient was noted to be 7 cm upon admission with meconium-stained fluid appreciated upon rupture of membranes. Patient did receive an epidural for pain control. Patient had a normal spontaneous vaginal delivery of a viable female infant weight of 6 lbs. 9 oz. Patient did sustain a secondary midline perineal laceration during delivery. This was repaired in usual fashion. Patient has done well . On this day #2 she is ambulatory and voiding without difficulty. She is tolerating regular diet without nausea or vomiting. She states her pain is well-controlled. remains in special care nursery as tachypnea was noted at delivery with suspicion for aspiration of meconium. Patient states she is off oxygen and they are working on feeding currently. Patient Condition at Discharge: Good Plan - Discharge Summary Discharge Rx Participant: No New Discharge Prescriptions: No Action Ole-Fyre-Jzwlw Acid [-U Capsule (formulary)] 1 cap PO DAILY Discharge Medication List Pmt-Onkg-Eyesd Acid [-U Capsule (formulary)] 1 cap PO DAILY 09/02/21 [History] Follow up Appointment(s)/Referral(s): Haylee Felder DO [Doctor of Osteopathic Medicine] - 4 Weeks Patient Instructions/Handouts: Vaginal Delivery (GEN), Vaginal Delivery (DC) Discharge Disposition: HOME SELF-CARE
[2022-04-21 09:16] VITALS: BP 126/70; PULSE 95; RESP 16; TEMP 98.6
== END 2022-04-21 15:22 | disposition home or self-care (01) | DRG 807 ==
LOC: FBPOP 19:10 → 4FBP 19:35
PROVIDERS: ADMIT Obstetrics & Gynecology; ATTEND Obstetrics & Gynecology Obstetrics
PROC: 10907ZC Drainage of Amniotic Fluid, Therapeutic from Products of Conception, Via Natural or Artificial Opening (ICD-10-PCS; principal; 2022-04-19)
PROC: 3E033VJ Introduction of Other Hormone into Peripheral Vein, Percutaneous Approach (ICD-10-PCS; principal; 2022-04-19)
PROC: 4A0HXCZ Measurement of Products of Conception, Cardiac Rate, External Approach (ICD-10-PCS; principal; 2022-04-19)
PROC: 10E0XZZ Delivery of Products of Conception, External Approach (ICD-10-PCS; principal; 2022-04-19)
DX: O69.81X0 Labor and delivery complicated by cord around neck, without compression, not applicable or unspecified (principal); O77.0 Labor and delivery complicated by meconium in amniotic fluid; O70.1 Second degree perineal laceration during delivery; F32.A Depression, unspecified; Z37.0 Single live birth; F41.9 Anxiety disorder, unspecified; O99.214 Obesity complicating childbirth; E66.9 Obesity, unspecified; O99.344 Other mental disorders complicating childbirth; Z3A.40 40 weeks gestation of pregnancy
CPT/HCPCS: 59025; 81001; 82565; 82570; 83615; 84112; 84156; 84450; 84460; 84520; 84550; 85025; 86850; 86900; 86901; 99213

== ENCOUNTER 2022-08-05 01:56 | Emergency (ER) | payer OTHER ==
[2022-08-05 02:09] VITALS: RESP 18
[2022-08-05] MEDS ORDERED: KETOROLAC 15 MG/ML 1 ML VIAL IVP STA (02:13)
[2022-08-05] MEDS ORDERED: SODIUM CHLORIDE 0.9% 1,000 ML IV STA (02:13)
[2022-08-05] MEDS ORDERED: MORPHINE SULFATE 4 MG/ML SYRINGE IV STA (02:18)
[2022-08-05] MEDS ORDERED: METOCLOPRAMIDE 5 MG/ML 2 ML VIAL IVP STA (02:18)
[2022-08-05] MEDS ORDERED: diphenhydrAMINE 50 MG/ML 1 ML VIAL IVP STA (02:18)
--- NOTE | 2022-08-05 02:25 | ED ---
Abdominal Pain HPI - General Chief Complaint: Abdominal Pain Stated Complaint: Abdominal Pain, Vomiting Time Seen by Provider: 08/05/22 02:11 Source: patient, RN notes reviewed Mode of arrival: ambulatory - History of Present Illness Initial Comments: This is a pleasant 21-year-old female who presents to the emergency department complaining of pain to her right upper quadrant which started about 9 PM. Patient states she ate steak and potatoes for dinner and then the pain dev eloped. Patient also has had vomiting. No hematemesis or coffee-ground emesis. Patient has no significant past medical history. Patient has had a D&C previously for a miscarriage. Patient states she just took a home test yesterday after missing her menses which was positive. Last menstrual period was July 01. Patient states pain is sharp in nature, exacerbated by palpation and sometimes deep breathing. However, patient denies any respiratory distress or cough. No alleviating factors. No headache, no fever or chills, no changes in vision or hearing, no sore throat or difficulty with speech, no neck pain, no chest pain or shortness of breath, no changes in urination or bowel movements, no numbness or tingling, no extremity pain, no skin rashes or lesions. Past medical, surgical, social, and family history reviewed. MD Complaint: abdominal pain - Related Data Home Medications Medication Instructions Recorded Confirmed Nvs-Bdgf-Etdnu Acid 1 cap PO DAILY 09/02/21 04/17/22 [-U Capsule (formulary)] Allergies Allergy/AdvReac Type Severity Reaction Status Date / Time No Known Allergies Allergy Verified 08/05/22 02:09 Review of Systems ROS Statement: Those systems with pertinent positive or pertinent negative responses have been documented in the HPI. ROS Other: All systems not noted in ROS Statement are negative. Past Medical History Past Medical History: No Reported History Additional Past Medical History / Comment(s): MISCARRIAGE History of Any Multi-Drug Resistant Organisms: None Reported Past Surgical History: Tonsillectomy Additional Past Surgical History / Comment(s): d&C Past Anesthesia/Blood Transfusion Reactions: No Reported Reaction Past Psychological History: Anxiety, Depression Smoking Status: Never smoker, Vaper Past Alcohol Use History: None Reported Past Drug Use History: None Reported - Past Family History Mother Family Medical History: No Reported History General Exam - General Exam Comments Initial Comments: Nontoxic appearing female in mild distress secondary to right upper quadrant pain. General appearance: alert, in distress Head exam: Present: atraumatic, normocephalic, normal inspection Eye exam: Present: normal appearance, PERRL, EOMI. Absent: scleral icterus, conjunctival injection, periorbital swelling ENT exam: Present: normal exam, mucous membranes moist Neck exam: Present: normal inspection. Absent: tenderness, meningismus, lymphadenopathy Respiratory exam: Present: normal lung sounds bilaterally. Absent: respiratory distress, wheezes, rales, rhonchi, stridor Cardiovascular Exam: Present: regular rate, normal rhythm, normal heart sounds. Absent: systolic murmur, diastolic murmur, rubs, gallop, clicks GI/Abdominal exam: Present: soft, tenderness (Right upper quadrant), guarding (Right upper quadrant), normal bowel sounds, other (No lower abdominal or pelvic pain). Absent: distended, rebound, rigid Extremities exam: Present: normal inspection, full ROM, normal capillary refill. Absent: tenderness, pedal edema, joint swelling, calf tenderness Back exam: Present: normal inspection Neurological exam: Present: alert, oriented X3, CN II-XII intact Psychiatric exam: Present: normal affect, normal mood Skin exam: Present: warm, dry, intact, normal color. Absent: rash Course Vital Signs 08/05/22 02:05 Temperature 98.3 F Pulse Rate 83 Respiratory 18 Rate Blood Pressure 135/87 O2 Sat by Pulse 100 Oximetry - Reevaluation(s) Reevaluation #1: 08/05/22 03:26 Patient reevaluated and feels much better. Patient essentially asymptomatic. Nausea has resolved. Patient not tender. Medical Decision Making - Medical Decision Making Symptomology most consistent with biliary colic and gallbladder pathology. Patient does not appear to be ill or toxic. I believe cholecystitis or ascending cholangitis is unlikely. Not consistent with appendicitis. Does not appear to be consistent with genitourinary pathology. Patient did have a posi tive test yesterday but has no pelvic pain. No vaginal bleeding. No vaginal discharge. No abdominal pain elsewhere or pelvic tenderness. This is unlikely to be ectopic . Patient's last menstrual period was July 01. Consistent with a very early . Does not appear to be consistent with cardiopulmonary disease Patient likely has biliary colic mild elevation in hepatic enzymes. No evidence of infectious process. Bilirubin was normal. We'll get a gallbladder ultrasound in the morning as the patient is essentially asymptomatic at discharge, repeat abdominal exam was benign. Patient will be given follow-up with Dr. Villalba Patient agrees with this treatment plan. Discussed gallbladder diet. Patient was told to return to the ER for any signs or symptoms worsen. Told to return immediately if any other problems arise. All questions answered. Treatment plan discussed. Patient in agreement Every effort has been made to ensure accuracy of this dictation. However, due to the limitations of electronic medical records and dictation devices, errors in charting still occur. Idea Worker Dr. Ramirez - Lab Data Result diagrams: 08/05/22 02:29 08/05/22 02:29 Lab Results 08/05/22 08/05/22 08/05/22 Range/Units 02:29 02:29 02:29 WBC 10.4 (3.8-10.6) k/uL RBC 4.68 (3.80-5.40) m/uL Hgb 12.5 (11.4-16.0) gm/dL Hct 37.2 (34.0-46.0) % MCV 79.6 L (80.0-100.0) fL MCH 26.7 (25.0-35.0) pg MCHC 33.5 (31.0-37.0) g/dL RDW 13.8 (11.5-15.5) % Plt Count 274 (150-450) k/uL MPV 7.9 Neutrophils % 77 % Lymphocytes % 17 % Monocytes % 4 % Eosinophils % 2 % Basophils % 0 % Neutrophils # 8.0 H (1.3-7.7) k/uL Lymphocytes # 1.7 (1.0-4.8) k/uL Monocytes # 0.4 (0-1.0) k/uL Eosinophils # 0.2 (0-0.7) k/uL Basophils # 0.0 (0-0.2) k/uL Sodium (137-145) mmol/L Potassium (3.5-5.1) mmol/L Chloride (98-107) mmol/L Carbon Dioxide (22-30) mmol/L Anion Gap mmol/L BUN (7-17) mg/dL Creatinine (0.52-1.04) mg/dL Est GFR (CKD-EPI)AfAm (>60 ml/min/1.73 sqM) Est GFR (CKD-EPI)NonAf (>60 ml/min/1.73 sqM) Glucose (74-99) mg/dL Calcium (8.4-10.2) mg/dL Total Bilirubin (0.2-1.3) mg/dL AST (14-36) U/L ALT (4-34) U/L Alkaline Phosphatase (38-126) U/L Total Protein (6.3-8.2) g/dL Albumin (3.5-5.0) g/dL Lipase (23-300) U/L Urine Color Yellow Urine Appearance Turbid H (Clear) Urine pH 8.0 (5.0-8.0) Ur Specific Grant 1.019 (1.001-1.035) Urine Protein Negative (Negative) Urine Glucose (UA) Negative (Negative) Urine Ketones Negative (Negative) Urine Blood Negative (Negative) Urine Nitrite Negative (Negative) Urine Bilirubin Negative (Negative) Urine Urobilinogen <2.0 (<2.0) mg/dL Ur Leukocyte Esterase Negative (Negative) Ur Squamous Epith Cells 1 (0-4) /hpf Amorphous Sediment Few H (None) /hpf Urine HCG, Qual Detected (Not Detectd) 08/05/22 Range/Units 02:29 WBC (3.8-10.6) k/uL RBC (3.80-5.40) m/uL Hgb (11.4-16.0) gm/dL Hct (34.0-46.0) % MCV (80.0-100.0) fL MCH (25.0-35.0) pg MCHC (31.0-37.0) g/dL RDW (11.5-15.5) % Plt Count (150-450) k/uL MPV Neutrophils % % Lymphocytes % % Monocytes % % Eosinophils % % Basophils % % Neutrophils # (1.3-7.7) k/uL Lymphocytes # (1.0-4.8) k/uL Monocytes # (0-1.0) k/uL Eosinophils # (0-0.7) k/uL Basophils # (0-0.2) k/uL Sodium 138 (137-145) mmol/L Potassium 4.1 (3.5-5.1) mmol/L Chloride 106 (98-107) mmol/L Carbon Dioxide 22 (22-30) mmol/L Anion Gap 10 mmol/L BUN 8 (7-17) mg/dL Creatinine 0.62 (0.52-1.04) mg/dL Est GFR (CKD-EPI)AfAm >90 (>60 ml/min/1.73 sqM) Est GFR (CKD-EPI)NonAf >90 (>60 ml/min/1.73 sqM) Glucose 92 (74-99) mg/dL Calcium 9.2 (8.4-10.2) mg/dL Total Bilirubin 0.9 (0.2-1.3) mg/dL AST 130 H (14-36) U/L ALT 59 H (4-34) U/L Alkaline Phosphatase 76 (38-126) U/L Total Protein 6.7 (6.3-8.2) g/dL Albumin 4.1 (3.5-5.0) g/dL Lipase 113 (23-300) U/L Urine Color Urine Appearance (Clear) Urine pH (5.0-8.0) Ur Specific Grant (1.001-1.035) Urine Protein (Negative) Urine Glucose (UA) (Negative) Urine Ketones (Negative) Urine Blood (Negative) Urine Nitrite (Negative) Urine Bilirubin (Negative) Urine Urobilinogen (<2.0) mg/dL Ur Leukocyte Esterase (Negative) Ur Squamous Epith Cells (0-4) /hpf Amorphous Sediment (None) /hpf Urine HCG, Qual (Not Detectd) Disposition Clinical Impression: Biliary colic, Right upper quadrant abdominal pain, Elevated liver enzymes Disposition: HOME SELF-CARE Instructions (If sedation given, give patient instructions): Biliary Colic ( ED), Low Fat Diet (ED) Additional Instructions: Call the surgeons office at 8 AM to schedule follow-up.. Return to the ER immediately if any symptoms worsen, new symptoms arise, or any other problems develop. Return to the hospital tomorrow for gallbladder ultrasound. Adhere to a clear liquid diet until you get the ultrasound performed. Is patient prescribed a controlled substance at d/c from ED?: No Time of Disposition: 03:32
[2022-08-05 02:42] LABS: Basophils % (A) 0 %; Eosinophils # (A) 0.2 k/uL (0-0.7); Eosinophils % (A) 2 %; HCT 37.2 % (34.0-46.0); HGB 12.5 gm/dL (11.4-16.0); Lymphocytes # (A) 1.7 k/uL (1.0-4.8); Lymphocytes % (A) 17 %; MCH 26.7 pg (25.0-35.0); MCHC 33.5 g/dL (31.0-37.0); MCV 79.6 fL (80.0-100.0); Mean Platelet Volume 7.9; Monocytes # (A) 0.4 k/uL (0-1.0); Monocytes % (A) 4 %; Neutrophils % (A) 77 %; Platelet Count 274 k/uL (150-450); RBC 4.68 m/uL (3.80-5.40); RDW 13.8 % (11.5-15.5); WBC 10.4 k/uL (3.8-10.6)
[2022-08-05 02:52] LABS: ALT 59 U/L (4-34); AST 130 U/L (14-36); African American GFR (CKD) >90 (>60 ml/min/1.73 sqM); Albumin 4.1 g/dL (3.5-5.0); Alkaline Phosphatase 76 U/L (38-126); Anion Gap 10 mmol/L; Blood Urea Nitrogen 8 mg/dL (7-17); Calcium 9.2 mg/dL (8.4-10.2); Carbon Dioxide 22 mmol/L (22-30); Chloride 106 mmol/L (98-107); Glucose 92 mg/dL (74-99); Lipase 113 U/L (23-300); Non-African American GFR(CKD) >90 (>60 ml/min/1.73 sqM); Potassium 4.1 mmol/L (3.5-5.1); Sodium 138 mmol/L (137-145); Total Bilirubin 0.9 mg/dL (0.2-1.3); Total Protein 6.7 g/dL (6.3-8.2)
[2022-08-05 03:18] LABS: Amorphous Sediment,Urine Few /hpf; Appearance,Urine Turbid (Clear); Bilirubin,Urine Negative (Negative); Blood,Urine Negative (Negative); Color,Urine Yellow; Glucose,Urine (UA) Negative (Negative); Ketones,Urine Negative (Negative); Leukocyte Esterase,Urine Negative (Negative); Nitrite,Urine Negative (Negative); Protein,Urine Negative (Negative); Specific Gravity,Urine 1.019 (1.001-1.035); Squamous Epithelial Cell,Urine 1 /hpf (0-4); Urobilinogen,Urine <2.0 mg/dL (<2.0)
[2022-08-05 03:45] VITALS: BP 121/72; PULSE 87; TEMP 97.8
== END 2022-08-05 03:56 | disposition home or self-care (01) ==
LOC: EC 01:56
DX: K80.66 Calculus of gallbladder and bile duct with acute and chronic cholecystitis without obstruction (principal); R74.01 Elevation of levels of liver transaminase levels; F17.290 Nicotine dependence, other tobacco product, uncomplicated
CPT/HCPCS: 96374; 96375; 99284; 36415; 80053; 83690; 85025; 81001; 81025; J2270; J1200; J2765

== ENCOUNTER → 2022-08-05 | Outpatient (CLI) | payer OTHER ==
--- NOTE | 2022-08-05 10:52 | US ---
EXAMINATION TYPE: US gallbladder DATE OF EXAM: 08/05/2022 COMPARISON: Gallbladder ultrasound 09/29/2019. CLINICAL HISTORY: R10.11 RIGHT UPPER QUAD PAIN. TECHNIQUE: Multiple sonographic images of the right upper quadrant are obtained. FINDINGS: EXAM MEASUREMENTS: Liver Length: 13.9 cm Gallbladder Wall: 0.21 cm CBD: 0.31 cm Right Kidney: 11.4 x 4.2 x 5.3 cm REPRESENTATIVE GOVERNMENT RELATIONS NOTES:Limited by bowel gas Pancreas: Tail obscured by overlying bowel gas. Otherwise unremarkable. Liver: Echogenic . This limits evaluation for small hepatic masses. No gross evidence of solid or c ystic mass. Gallbladder: Multiple mobile tiny echogenic foci with shadowing consistent with gallstones. Contract ed appearance with no evidence of wall thickening or pericholecystic fluid. Evidence for sonographic Baires's sign: No CBD: wnl Right Kidney: wnl . No hydronephrosis, shadowing calculi, or contour deforming solid mass. IMPRESSION: 1. Cholelithiasis without evidence for acute cholecystitis. 2. Hepatic steatosis.
== END | disposition home or self-care (01) ==
LOC: RADUSWWP 10:15
PROVIDERS: ATTEND Emergency Medicine
DX: K80.20 Calculus of gallbladder without cholecystitis without obstruction (principal); K76.0 Fatty (change of) liver, not elsewhere classified
CPT/HCPCS: 76705

== ENCOUNTER 2022-08-06 00:01 | Observation (INO) | payer OTHER ==
[2022-08-06] MEDS ORDERED: KETOROLAC 15 MG/ML 1 ML VIAL IVP STA (00:51)
[2022-08-06] MEDS ORDERED: ONDANSETRON 4 MG/2 ML VIAL IVP STA (00:51)
[2022-08-06] MEDS ORDERED: HYDROmorphone 0.5 MG/0.5 ML SYRINGE IVP STA (00:51)
--- NOTE | 2022-08-06 01:00 | ED ---
Abdominal Pain HPI - General Chief Complaint: Abdominal Pain Stated Complaint: abd pain Time Seen by Provider: 08/06/22 00:55 Source: patient, RN notes reviewed Mode of arrival: ambulatory - History of Present Illness Initial Comments: This is a 21 year old female who presents to the emergency department for abdominal pain. She was evaluated here yesterday and found to have gallstones on the ultrasound. She had no evidence for acute cholecystitis at that time. About 2 hours prior to arrival today, her pain became much worse and she has been unable to sleep or stop throwing up. The pain is still located in the RUQ. Denies any fevers. Denies any fevers, chills, sore throat, cough, dyspnea, chest pain, palpitations, diarrhea, or headaches. MD Complaint: abdominal pain Location: RUQ Associated Symptoms: nausea, vomiting - Related Data Home Medications Medication Instructions Recorded Confirmed Dzi-Ufjk-Ldlif Acid 1 cap PO DAILY 09/02/21 04/17/22 [-U Capsule (formulary)] Allergies Allergy/AdvReac Type Severity Reaction Status Date / Time No Known Allergies Allergy Verified 08/05/22 02:09 Review of Systems ROS Statement: Those systems with pertinent positive or pertinent negative responses have been documented in the HPI. ROS Other: All systems not noted in ROS Statement are negative. Past Medical History Past Medical History: No Reported History Additional Past Medical History / Comment(s): MISCARRIAGE, gall stones History of Any Multi-Drug Resistant Organisms: None Reported Past Surgical History: Tonsillectomy Additional Past Surgical History / Comment(s): d&C Past Anesthesia/Blood Transfusion Reactions: No Reported Reaction Past Psychological History: Anxiety, Depression Smoking Status: Never smoker, Vaper Past Alcohol Use History: None Reported Past Drug Use History: None Reported - Past Family History Mother Family Medical History: No Reported History General Exam General appearance: alert, in distress Head exam: Present: atraumatic, normocephalic, normal inspection Respiratory exam: Present: normal lung sounds bilaterally. Absent: respiratory distress, wheezes, rales, rhonchi, stridor Cardiovascular Exam: Present: regular rate, normal rhythm, normal heart sounds. Absent: systolic murmur, diastolic murmur, rubs, gallop, clicks GI/Abdominal exam: Present: soft, tenderness (RUQ), normal bowel sounds. Absent: distended Expanded GI/Abdominal exam: Present: Baires's sign Neurological exam: Present: alert, oriented X3, CN II-XII intact Psychiatric exam: Present: normal affect, normal mood Skin exam: Present: warm, dry, intact, normal color. Absent: rash Course Vital Signs 08/06/22 00:50 Temperature 98.7 F Pulse Rate 105 H Respiratory 19 Rate Blood Pressure 161/99 O2 Sat by Pulse 98 Oximetry Medical Decision Making - Medical Decision Making This is a 21 year old female who presents to the emergency department for abdominal pain. Ultrasound obtained yesterday reveals cholelithiasis without acute cholecystitis. Repeat lab work was obtained and the patient was given Toradol, Dilaudid, Zofran, and IV fluids. We subsequently found out from the urine hcg that the patient was , which she states that she was aware of. This was not disclosed to us prior to medication administration. Believes that she is 4-5 weeks . She does have elevated liver enzymes, suggesting she may have choledocholithiasis. Dr. Funes, general surgery, and Dr. Johnson, gastroenterology, were consulted, and are agreeable to seeing the patient. She will be admitted to general surgery with gastroenterology and medicine as consult. HCG Quant level ordered and pending at the time of admission. PRN Ofirmev ordered for pain, as the patient is currently NPO and prevents her from having anti-inflammatories. This case was discussed in detail with the attending ED physician. Presentation, findings, and treatment plan discussed in detail as well. - Lab Data Result diagrams: 08/06/22 01:04 08/06/22 01:04 Lab Results 08/06/22 08/06/22 08/06/22 Range/Units 01:04 01:04 01:17 WBC 8.7 (3.8-10.6) k/uL RBC 4.98 (3.80-5.40) m/uL Hgb 13.1 (11.4-16.0) gm/dL Hct 39.5 (34.0-46.0) % MCV 79.4 L (80.0-100.0) fL MCH 26.3 (25.0-35.0) pg MCHC 33.1 (31.0-37.0) g/dL RDW 13.8 (11.5-15.5) % Plt Count 286 (150-450) k/uL MPV 8.2 Neutrophils % 71 % Lymphocytes % 24 % Monocytes % 2 % Eosinophils % 2 % Basophils % 0 % Neutrophils # 6.2 (1.3-7.7) k/uL Lymphocytes # 2.1 (1.0-4.8) k/uL Monocytes # 0.2 (0-1.0) k/uL Eosinophils # 0.1 (0-0.7) k/uL Basophils # 0.0 (0-0.2) k/uL Sodium 137 (137-145) mmol/L Potassium 3.8 (3.5-5.1) mmol/L Chloride 101 (98-107) mmol/L Carbon Dioxide 22 (22-30) mmol/L Anion Gap 14 mmol/L BUN 5 L (7-17) mg/dL Creatinine 0.69 (0.52-1.04) mg/dL Est GFR (CKD-EPI)AfAm >90 (>60 ml/min/1.73 sqM) Est GFR (CKD-EPI)NonAf >90 (>60 ml/min/1.73 sqM) Glucose 101 H (74-99) mg/dL Calcium 9.3 (8.4-10.2) mg/dL Total Bilirubin 2.0 H (0.2-1.3) mg/dL AST 325 H (14-36) U/L ALT 271 H (4-34) U/L Alkaline Phosphatase 129 H (38-126) U/L Total Protein 7.3 (6.3-8.2) g/dL Albumin 4.6 (3.5-5.0) g/dL Amylase 43 (30-110) U/L Lipase 96 (23-300) U/L Urine Color Urine Appearance (Clear) Urine pH (5.0-8.0) Ur Specific [place] (1.001-1.035) Urine Protein (Negative) Urine Glucose (UA) (Negative) Urine Ketones (Negative) Urine Blood (Negative) Urine Nitrite (Negative) Urine Bilirubin (Negative) Urine Urobilinogen (<2.0) mg/dL Ur Leukocyte Esterase (Negative) Urine RBC (0-5) /hpf Urine WBC (0-5) /hpf Ur Squamous Epith Cells (0-4) /hpf Urine Mucus (None) /hpf Urine HCG, Qual Detected (Not Detectd) 08/06/22 Range/Units 01:17 WBC (3.8-10.6) k/uL RBC (3.80-5.40) m/uL Hgb (11.4-16.0) gm/dL Hct (34.0-46.0) % MCV (80.0-100.0) fL MCH (25.0-35.0) pg MCHC (31.0-37.0) g/dL RDW (11.5-15.5) % Plt Count (150-450) k/uL MPV Neutrophils % % Lymphocytes % % Monocytes % % Eosinophils % % Basophils % % Neutrophils # (1.3-7.7) k/uL Lymphocytes # (1.0-4.8) k/uL Monocytes # (0-1.0) k/uL Eosinophils # (0-0.7) k/uL Basophils # (0-0.2) k/uL Sodium (137-145) mmol/L Potassium (3.5-5.1) mmol/L Chloride (98-107) mmol/L Carbon Dioxide (22-30) mmol/L Anion Gap mmol/L BUN (7-17) mg/dL Creatinine (0.52-1.04) mg/dL Est GFR (CKD-EPI)AfAm (>60 ml/min/1.73 sqM) Est GFR (CKD-EPI)NonAf (>60 ml/min/1.73 sqM) Glucose (74-99) mg/dL Calcium (8.4-10.2) mg/dL Total Bilirubin (0.2-1.3) mg/dL AST (14-36) U/L ALT (4-34) U/L Alkaline Phosphatase (38-126) U/L Total Protein (6.3-8.2) g/dL Albumin (3.5-5.0) g/dL Amylase (30-110) U/L Lipase (23-300) U/L Urine Color Dark Yellow Urine Appearance Clear (Clear) Urine pH 7.0 (5.0-8.0) Ur Specific [place] 1.019 (1.001-1.035) Urine Protein Trace H (Negative) Urine Glucose (UA) Negative (Negative) Urine Ketones Negative (Negative) Urine Blood Negative (Negative) Urine Nitrite Negative (Negative) Urine Bilirubin 1+ H (Negative) Urine Urobilinogen 2.0 (<2.0) mg/dL Ur Leukocyte Esterase Moderate H (Negative) Urine RBC 1 (0-5) /hpf Urine WBC 3 (0-5) /hpf Ur Squamous Epith Cells 1 (0-4) /hpf Urine Mucus Occasional H (None) /hpf Urine HCG, Qual (Not Detectd) - Radiology Data Radiology results: report reviewed, image reviewed Disposition Clinical Impression: Choledocholithiasis Disposition: ADMITTED IP TO THIS HOSP Referrals: Sophie Coles MD [Primary Care Provider] - 1-2 days
[2022-08-06 01:15] LABS: Basophils % (A) 0 %; Eosinophils # (A) 0.1 k/uL (0-0.7); Eosinophils % (A) 2 %; HCT 39.5 % (34.0-46.0); HGB 13.1 gm/dL (11.4-16.0); Lymphocytes # (A) 2.1 k/uL (1.0-4.8); Lymphocytes % (A) 24 %; MCH 26.3 pg (25.0-35.0); MCHC 33.1 g/dL (31.0-37.0); MCV 79.4 fL (80.0-100.0); Mean Platelet Volume 8.2; Monocytes # (A) 0.2 k/uL (0-1.0); Monocytes % (A) 2 %; Neutrophils # (A) 6.2 k/uL (1.3-7.7); Neutrophils % (A) 71 %; Platelet Count 286 k/uL (150-450); RBC 4.98 m/uL (3.80-5.40); RDW 13.8 % (11.5-15.5); WBC 8.7 k/uL (3.8-10.6)
[2022-08-06 01:23] LABS: ALT 271 U/L (4-34); AST 325 U/L (14-36); African American GFR (CKD) >90 (>60 ml/min/1.73 sqM); Albumin 4.6 g/dL (3.5-5.0); Alkaline Phosphatase 129 U/L (38-126); Amylase 43 U/L (30-110); Anion Gap 14 mmol/L; Blood Urea Nitrogen 5 mg/dL (7-17); Calcium 9.3 mg/dL (8.4-10.2); Carbon Dioxide 22 mmol/L (22-30); Chloride 101 mmol/L (98-107); Glucose 101 mg/dL (74-99); Lipase 96 U/L (23-300); Non-African American GFR(CKD) >90 (>60 ml/min/1.73 sqM); Potassium 3.8 mmol/L (3.5-5.1); Sodium 137 mmol/L (137-145); Total Protein 7.3 g/dL (6.3-8.2)
[2022-08-06 01:31] LABS: Appearance,Urine Clear (Clear); Bilirubin,Urine 1+ (Negative); Blood,Urine Negative (Negative); Color,Urine Dark Yellow; Glucose,Urine (UA) Negative (Negative); Ketones,Urine Negative (Negative); Leukocyte Esterase,Urine Moderate (Negative); Mucus,Urine Occasional /hpf; Nitrite,Urine Negative (Negative); Protein,Urine Trace (Negative); RBC,Urine 1 /hpf (0-5); Specific Gravity,Urine 1.019 (1.001-1.035); Squamous Epithelial Cell,Urine 1 /hpf (0-4); WBC,Urine 3 /hpf (0-5)
[2022-08-06] MEDS ORDERED: ONDANSETRON 4 MG/2 ML VIAL IVP PRN (03:53)
[2022-08-06] MEDS ORDERED: NALOXONE 0.4 MG/ML 1 ML VIAL IV PRN (03:53)
[2022-08-06] MEDS ORDERED: ACETAMINOPHEN IV (For NPO) 1,000 MG in EMPTY BAG 1 BAG IVPB PRN (03:55)
[2022-08-06] MEDS: SODIUM CHLORIDE 0.9% 1,000 ML IV SCH ×3 (08:51→20:10)
[2022-08-06 09:33] LABS: Albumin 4.5 g/dL (3.5-5.0); Albumin/Globulin Ratio 1.7; Bilirubin, Conjugated 0.4 mg/dL (0.0-0.3); Bilirubin,Unconjugated 0.5 mg/dL (0.0-1.1); Globulin 2.6 g/dL; Total Bilirubin 1.8 mg/dL (0.2-1.3); Total Protein 7.1 g/dL (6.3-8.2)
[2022-08-06 10:57] LABS: Albumin 3.9 g/dL (3.5-5.0); Albumin/Globulin Ratio 1.7; Bilirubin,Unconjugated 0.4 mg/dL (0.0-1.1); Globulin 2.3 g/dL; Total Bilirubin 0.9 mg/dL (0.2-1.3); Total Protein 6.2 g/dL (6.3-8.2)
--- NOTE | 2022-08-06 11:05 | P.CONS ---
History of Present Illness - Reason for Consult Consult date: 08/06/22 Choledocholithiasis Requesting physician: Malia Hinkle - Chief Complaint Abdominal pain - History of Present Illness A pleasant 21-year-old female who presented to the emergency department with complaints of abdominal and epigastric pain that radiated to her back. She had some associated nausea and vomiting. Apparently patient had similar pain but not quite as bad 2 days prior and was seen in the emergency department and underwent ultrasound of the gallbladder showing cholelithiasis, no CBD dilation. LFTs were mildly dilated with a bilirubin 0.8 AST 130 ALT 59 phosphatase 76. The patient states she was not scheduled to see the general surgeon until the of this month and she didn't feel that she could wait that long. Continue emergency room for further evaluation. During this visit she was known to have increase in her LFTs with a bilirubin of 2.0ST 325 ALT 270 alkaline phosphatase 128. Patient was initially admitted to general surgery following which she had an urine hCG which was positive. She estimates around 4-5 weeks . She recently delivered in March, nursing is reporting that she is stating that she is planning to port later this month and through [facility]. She states that her abdominal pain has significantly improved since coming to the emergency room. She has some mild nausea but no vomiting. She denies any fevers or chills. Awaiting repeat labs, Review of Systems REVIEW OF SYSTEMS: CARDIOPULMONARY: No chest pain or shortness of breath. Gastrointestinal: Epigastric, abdominal pain radiating to her back , Now improved. No nausea no vomiting. No hematemesis, coffee-ground emesis. No rectal bleeding, or melena. GENITOURINARY: No dysuria or hematuria. MUSCULOSKELETAL: Reports normal range of motion. SKIN: No rashes. No jaundice. ENDOCRINE: No chills, fevers. No excessive weight gain or loss. No polydipsia or polyuria. PSYCHIATRIC: Unremarkable. NEUROLOGY: No change in mental status. Denies dizziness, headache. ENT: Vision unremarkable. CONSTITUTIONAL: No recent weight loss. No fever, chills, night sweats. Past Medical History Past Medical History: No Reported History Additional Past Medical History / Comment(s): MISCARRIAGE, gall stones History of Any Multi-Drug Resistant Organisms: None Reported Past Surgical History: Tonsillectomy Additional Past Surgical History / Comment(s): d&C Past Anesthesia/Blood Transfusion Reactions: No Reported Reaction Past Psychological History: Anxiety, Depression Smoking Status: Never smoker, Vaper Past Alcohol Use History: None Reported Past Drug Use History: None Reported - Past Family History Mother Family Medical History: No Reported History Medications and Allergies Home Medications Medication Instructions Recorded Confirmed Type No Known Home Medications 08/06/22 08/06/22 History Allergies Allergy/AdvReac Type Severity Reaction Status Date / Time No Known Allergies Allergy Verified 08/06/22 07:56 Physical Exam Vitals: Vital Signs Temp Pulse Resp BP Pulse Ox 08/06/22 00:50 98.7 F 105 H 19 161/99 98 Intake and Output 08/05/22 08/06/22 08/06/22 22:59 06:59 14:59 Other: Weight 124.738 kg General appearance: The patient is alert, oriented, appears in no acute distress. HET: Head is normocephalic and atraumatic. Conjunctiva pink. Sclera anicteric. Neck: Supple without lymphadenopathy. Trachea midline. Heart: S1 S2. Regular rate and rhythm. Lungs: Clear to auscultation. Abdomen: Soft, right upper quadrant tenderness to palpation, nondistended with bowel sounds. No guarding or rigidity. Skin: No rashes. No jaundice. Extremities: Normal skin color and turgor. No pedal edema. Neurological: No focal deficits. Alert and oriented x3. Results CBC & Chem 7: 08/06/22 01:04 08/06/22 01:04 Labs: Abnormal Lab Results - Last 24 Hours (Table) 08/06/22 08/06/22 08/06/22 Range/Units 01:04 01:04 01:17 MCV 79.4 L (80.0-100.0) fL BUN 5 L (7-17) mg/dL Glucose 101 H (74-99) mg/dL Total Bilirubin 2.0 H (0.2-1.3) mg/dL AST 325 H (14-36) U/L ALT 271 H (4-34) U/L Alkaline Phosphatase 129 H (38-126) U/L Urine Protein Trace H (Negative) Urine Bilirubin 1+ H (Negative) Ur Leukocyte Esterase Moderate H (Negative) Urine Mucus Occasional H (None) /hpf Comments: Gallbladder ultrasound done 08/05/2022 reports cholelithiasis without evidence for acute cholecystitis. Hepatic steatosis. Assessment and Plan (1) Elevated liver enzymes Narrative/Plan: 21-year-old female who was recently in the emergency department for right upper quadrant pain associated with nausea and vomiting that has been going on for a few days now. She was seen and examined had a ultrasound of the gallbladder that showed cholelithiasis without any CBD dilation and no evidence of acute cholecystitis. She was sent home from the emergency department and told to follow-up with general surgery. She has returned with some increased right upper quadrant pain, radiating to the center of her chest and to her back which is now improved. On this admission she had notable elevated LFTs that may be consistent with a choledochal lithiasis. However patient's symptoms have significantly improved, we will repeat LFTs. Further recommendations forthcoming. Current Visit: No Status: Acute Code(s): R74.8 - ABNORMAL LEVELS OF OTHER SERUM ENZYMES SNOMED Code(s): 601525570 (2) Right upper quadrant abdominal pain Current Visit: No Status: Acute Code(s): R10.11 - RIGHT UPPER QUADRANT PAIN SNOMED Code(s): 072958983 Plan: 1. Continue symptomatic and supportive care 2. May have clear liquid diet if okay with general surgery 3. Repeat LFTs, PT INR 4. Await recommendations from general surgery 5. No plans on ERCP Thank you for allowing us to participate in the care of the patient, the GI service will sign off, gastroenterology will not be available at the hospital this weekend and through next week. If further evaluation by gastroenterology is required the patient will need transfer as per the primary team's discretion. Dr. Kierra Johnson I agree with the dictator's note, documented as a scribe by Kelli Coleman.
--- NOTE | 2022-08-06 12:14 | P.CON ---
Consult Note - . Consult date: 08/06/22 Assessment/Plan:: Reason for consultation; medical management History of present illness; patient is a 21-year-old lady with no significant past medical history who presented to the ER because of abdominal pain. Patient was seen in the ER 2 days ago with similar symptoms and underwent ultrasound of gallbladder showing cholelithiasis, there was No CBD dilatation. Patient was scheduled to follow up outpatient with general surgery. After being discharged home patient continued to have severe abdominal pain located in the right upper quadrant. Pain was aggravated by eating. Because of this worsening pain, patient was brought back to the ER. Initially patient was given pain medications, IV fluids and antiemetics. Initial lab work did not show any elevated white count, hemoglobin was 13.1, total bilirubin was 1.8, AST was 325 ALT was 270, alk phos was 128. Patient hCG level came back elevated at 4554.8. Patient was admitted to general surgery with consult with GI. REVIEW OF SYSTEMS: CONSTITUTIONAL: No fever, no malaise, no fatigue. HEENT: No recent visual problems or hearing problems. Denied any sore throat. CARDIOVASCULAR: No chest pain, orthopnea, PND, no palpitations, no syncope. PULMONARY: No shortness of breath, no cough, no hemoptysis. GASTROINTESTINAL: As noted in the HPI NEUROLOGICAL: No headaches, no weakness, no numbness. HEMATOLOGICAL: Denies any bleeding or petechiae. GENITOURINARY: Denies any burning micturition, frequency, or urgency. MUSCULOSKELETAL/RHEUMATOLOGICAL: Denies any joint pain, swelling, or any muscle pain. ENDOCRINE: Denies any polyuria or polydipsia. The rest of the 14-point review of systems is negative. PHYSICAL EXAMINATION: GENERAL: The patient is alert and oriented x3, not in any acute distress. Well developed, well nourished. HEENT: Pupils are round and equally reacting to light. EOMI. No scleral icterus. No conjunctival pallor. Normocephalic, atraumatic. No pharyngeal erythema. No thyromegaly. CARDIOVASCULAR: S1 and S2 present. No murmurs, rubs, or gallops. PULMONARY: Chest is clear to auscultation, no wheezing or crackles. ABDOMEN: Tenderness in right upper quadrant, nondistended, normoactive bowel sounds. No palpable organomegaly. MUSCULOSKELETAL: No joint swelling or deformity. EXTREMITIES: No cyanosis, clubbing, or pedal edema. NEUROLOGICAL: Gross neurological examination did not reveal any focal deficits. SKIN: No rashes. Assessment : Choledocholithiasis Elevated LFTs Obesity First trimester Plan; Monitor LFTs. Continue IV fluids. Continue antiemetics Continue pain management per surgery MRCP ordered. GI consulted Started patient on vitamins. She needs to follow up outpatient with DISPATCHER SERVICE CHIEF. DVT prophylaxis:
[2022-08-06] MEDS: PRENATAL VIT-IRON-FOLIC ACID 1 EACH TABLET PO SCH (13:11)
--- NOTE | 2022-08-06 14:13 | P.GSHP ---
History of Present Illness H&P Date: 08/06/22 CHIEF COMPLAINT: Abdominal pain HISTORY OF PRESENT ILLNESS: This is a 21-year-old female who presents to the emergency room with right upper quadrant abdominal pain for the last 2 days. She reports symptoms started around 9 PM 2 days ago. She initially came into the ER yesterday morning around 1 AM with right upper quadrant abdominal pain and was found to have gallstones and diagnosed with biliary colic and discharged from the ER. Patient reports that she try to sleep and then did eat grilled chicken and oranges at home. Her pain continued to worsen and she started to have vomiting. She denies any fever chills or sweats. PAST MEDICAL HISTORY: See list. PAST SURGICAL HISTORY: See list. MEDICATIONS: See list. ALLERGIES: See list. SOCIAL HISTORY: No illicit drug use. REVIEW OF SYSTEMS: CONSTITUTIONAL: Denies fever or chills. HEENT: Denies blurred vision, vision changes, or eye pain. Denies hemoptysis CARDIOVASCULAR: Denies chest pain or pressure. RESPIRATORY: No shortness of breath. GASTROINTESTINAL: See HPI for pertinent findings HEMATOLOGIC: Denies bleeding disorders. GENITOURINARY: Denies any blood in urine or increased urinary frequency. SKIN: Denies pruitis. Denies rash. PHYSICAL EXAM: VITAL SIGNS: Reviewed GENERAL: Well-developed in no acute distress. HEENT: No sclera icterus. Extraocular movements grossly intact. Moist buccal mucosa. Head is atraumatic, normocephalic. No nasal drainage. ABDOMEN: Soft. Obese. Nondistended. Tenderness to palpation of the right upper quadrant NEUROLOGIC: Alert and oriented. Cranial nerves II through XII grossly intact. LABORATORY DATA: WBC is 8.7 Hgb 13.1 and platelets 286 INR 1.0 Sodium is 137 potassium 3.8 creatinine 0.69 Total bilirubin 2.0 down to 0.9 AST 325 down to 232 ALT 271 down to 261 alk phos 129 down to 117 lipase 96 Urine hCG detected IMAGING: Gallbladder ultrasound with cholelithiasis without evidence of acute cholecystitis. Hepatic steatosis ASSESSMENT: 1. Right upper quadrant abdominal pain 2. Possible Choledocholithiasis with elevated LFTs and total bilirubin 3. First trimester PLAN: -Continue to observe patient -Continue IV fluids -Continue supportive care -No surgical intervention planned -No intervention planned per GI service -Continue monitor LFTs -Start clear liquid diet Physician Geriatric Nurse Practitioner note has been reviewed by physician. Signing provider agrees with the documented findings, assessment, and plan of care. I have personally seen and examined the patient, reviewed the PIN CHASER /PAs history, exam and MDM and agree with the assessment and plan as written. Based on total visit time, I have performed more than 50% of the visit. As above: Patient admitted with suspected choledocholithiasis. Patient's liver enzymes improved today. Still having mild pain in urine is still somewhat dark. We'll repeat labs tomorrow. GI is no longer available after today. If suspicion for choledocholithiasis persist may require transfer. Past Medical History Past Medical History: No Reported History Additional Past Medical History / Comment(s): MISCARRIAGE, gall stones History of Any Multi-Drug Resistant Organisms: None Reported Past Surgical History: Tonsillectomy Additional Past Surgical History / Comment(s): d&C Past Anesthesia/Blood Transfusion Reactions: No Reported Reaction Past Psychological History: Anxiety, Depression Smoking Status: Never smoker, Vaper Past Alcohol Use History: None Reported Past Drug Use History: None Reported - Past Family History Mother Family Medical History: No Reported History Medications and Allergies Home Medications Medication Instructions Recorded Confirmed Type No Known Home Medications 08/06/22 08/06/22 History Allergies Allergy/AdvReac Type Severity Reaction Status Date / Time No Known Allergies Allergy Verified 08/06/22 07:56 Surgical - Exam Vital Signs Temp Pulse Resp BP Pulse Ox 98.7 F 105 H 19 161/99 98 08/06/22 00:50 08/06/22 00:50 08/06/22 00:50 08/06/22 00:50 08/06/22 00:50 Results - Labs 08/06/22 01:04 08/06/22 01:04 Abnormal Lab Results - Last 24 Hours (Table) 08/06/22 08/06/22 08/06/22 Range/Units 01:04 01:04 01:04 MCV 79.4 L (80.0-100.0) fL BUN 5 L (7-17) mg/dL Glucose 101 H (74-99) mg/dL Total Bilirubin 2.0 H 1.8 H (0.2-1.3) mg/dL Conjugated Bilirubin 0.4 H (0.0-0.3) mg/dL AST 325 H 325 H (14-36) U/L ALT 271 H 270 H (4-34) U/L Alkaline Phosphatase 129 H 128 H (38-126) U/L Urine Protein (Negative) Urine Bilirubin (Negative) Ur Leukocyte Esterase (Negative) Urine Mucus (None) /hpf 08/06/22 Range/Units 01:17 MCV (80.0-100.0) fL BUN (7-17) mg/dL Glucose (74-99) mg/dL Total Bilirubin (0.2-1.3) mg/dL Conjugated Bilirubin (0.0-0.3) mg/dL AST (14-36) U/L ALT (4-34) U/L Alkaline Phosphatase (38-126) U/L Urine Protein Trace H (Negative) Urine Bilirubin 1+ H (Negative) Ur Leukocyte Esterase Moderate H (Negative) Urine Mucus Occasional H (None) /hpf Diabetes panel 08/06/22 08/06/22 Range/Units 01:04 01:04 Sodium 137 (137-145) mmol/L Potassium 3.8 (3.5-5.1) mmol/L Chloride 101 (98-107) mmol/L Carbon Dioxide 22 (22-30) mmol/L BUN 5 L (7-17) mg/dL Creatinine 0.69 (0.52-1.04) mg/dL Glucose 101 H (74-99) mg/dL Calcium 9.3 (8.4-10.2) mg/dL AST 325 H 325 H (14-36) U/L ALT 271 H 270 H (4-34) U/L Alkaline Phosphatase 129 H 128 H (38-126) U/L Total Protein 7.3 7.1 (6.3-8.2) g/dL Albumin 4.6 4.5 (3.5-5.0) g/dL Calcium panel 08/06/22 08/06/22 Range/Units 01:04 01:04 Calcium 9.3 (8.4-10.2) mg/dL Albumin 4.6 4.5 (3.5-5.0) g/dL Pituitary panel 08/06/22 Range/Units 01:04 Sodium 137 (137-145) mmol/L Potassium 3.8 (3.5-5.1) mmol/L Chloride 101 (98-107) mmol/L Carbon Dioxide 22 (22-30) mmol/L BUN 5 L (7-17) mg/dL Creatinine 0.69 (0.52-1.04) mg/dL Glucose 101 H (74-99) mg/dL Calcium 9.3 (8.4-10.2) mg/dL Adrenal panel 08/06/22 08/06/22 Range/Units 01:04 01:04 Sodium 137 (137-145) mmol/L Potassium 3.8 (3.5-5.1) mmol/L Chloride 101 (98-107) mmol/L Carbon Dioxide 22 (22-30) mmol/L BUN 5 L (7-17) mg/dL Creatinine 0.69 (0.52-1.04) mg/dL Glucose 101 H (74-99) mg/dL Calcium 9.3 (8.4-10.2) mg/dL Total Bilirubin 2.0 H 1.8 H (0.2-1.3) mg/dL AST 325 H 325 H (14-36) U/L ALT 271 H 270 H (4-34) U/L Alkaline Phosphatase 129 H 128 H (38-126) U/L Total Protein 7.3 7.1 (6.3-8.2) g/dL Albumin 4.6 4.5 (3.5-5.0) g/dL
[2022-08-06] MEDS ORDERED: HYDROcodone/APAP 5-325MG 1 EACH TAB PO PRN (16:24)
[2022-08-06] MEDS ORDERED: HYDROmorphone 1 MG/ML 1 ML SYRINGE IVP PRN (16:24)
[2022-08-06] MEDS ORDERED: ACETAMINOPHEN TAB 325 MG TAB PO PRN (16:41)
[2022-08-07 00:47] VITALS: RESP 17
[2022-08-07] MEDS: SODIUM CHLORIDE 0.9% 1,000 ML IV SCH (04:00)
[2022-08-07 09:03] VITALS: BP 115/70; PULSE 75; TEMP 98.3
[2022-08-07] MEDS: PRENATAL VIT-IRON-FOLIC ACID 1 EACH TABLET PO SCH (09:11)
[2022-08-07 11:48] LABS: Basophils # (A) 0.03 X 10*3/uL (0.00-0.10); Basophils % (A) 0.4 %; Eosinophils % (A) 1.4 %; HCT 34.6 % (37.2-46.3); HGB 11.2 g/dL (12.0-15.0); Immature Grans, Automated 0.1 %; Lymphocytes # (A) 2.36 X 10*3/uL (0.90-5.00); Lymphocytes % (A) 32.7 %; MCH 26.3 pg (27.0-32.0); MCHC 32.4 g/dL (32.0-37.0); MCV 81.2 fL (80.0-97.0); Mean Platelet Volume 10.5 fL (9.5-12.2); Monocytes # (A) 0.27 X 10*3/uL (0.20-1.00); Monocytes % (A) 3.7 %; NRBC Per 100 WBC 0 /100 WBCS (0.0-0.0); Neutrophils # (A) 4.45 X 10*3/uL (1.80-7.70); Neutrophils % (A) 61.7 %; Platelet Count 273 X 10*3/uL (140-440); RBC 4.26 X 10*6/uL (4.10-5.20); RDW 13.8 % (11.5-14.5); WBC 7.22 X 10*3/uL (4.50-10.00)
[2022-08-07 11:57] LABS: Albumin 3.5 g/dL (3.8-4.9); Albumin/Globulin Ratio 1.67 (1.60-3.17); BUN/Creat Ratio 6.17 Ratio (12.00-20.00); Blood Urea Nitrogen 3.7 mg/dL (9.0-27.0); Calcium 8.4 mg/dL (8.7-10.3); Globulin 2.1 g/dL (1.6-3.3); Non-African American GFR(CKD) 129.4 (60.0-200.0); Total Bilirubin 0.4 mg/dL (0.30-1.20); Total Protein 5.6 g/dL (6.2-8.2)
[2022-08-07 12:54] LABS: INR 1.04 (0.90-1.11); Prothrombin Time 11.4 sec (9.9-11.9)
--- NOTE | 2022-09-01 08:35 | P.DS ---
Providers Date of admission: 08/06/22 11:02 Expected date of discharge: 08/07/22 Attending physician: Chidi Funes Consults: 08/06/22 03:53 Consult Physician Urgent Consulting Provider: Diandra Johnson Consult Reason/Comments: Possible choledocholithiasis Do you want consulting provider notified?: Already Contacted 08/06/22 03:57 Consult Physician Urgent Consulting Provider: Vicki Thomas Consult Reason/Comments: medical management Do you want consulting provider notified?: Yes, Notify in am Primary care physician: Sharyn Barrios [facility] Course: This a 19-year-old female who is 5 weeks . Patient is hospital for choledocholithiasis. Patient's symptoms resolved. On the day of discharge her abdomen was soft nontender. Patient will be discharged home she'll follow-up Dr. Funes next week. Plan - Discharge Summary Discharge Rx Participant: No New Discharge Prescriptions: No Action No Known Home Medications Discharge Medication List No Known Home Medications 08/06/22 [History] Follow up Appointment(s)/Referral(s): Sophie Coles MD [Primary Care Provider] - 1-2 days Chidi Funes MD [Medical Doctor] - 1 Week Discharge Disposition: HOME SELF-CARE
== END 2022-08-07 12:08 | disposition home or self-care (01) ==
LOC: EC 00:01 → 6NMEDSUR 03:53 → INTOOBSV 11:02 → OBSVTOIN 11:02 → 6NMEDSUR 11:43 → UNDODISIN 08-07 12:08
PROVIDERS: ADMIT Surgery; ATTEND Surgery
DX: O26.611 Liver and biliary tract disorders in pregnancy, first trimester (principal); K80.50 Calculus of bile duct without cholangitis or cholecystitis without obstruction; F41.9 Anxiety disorder, unspecified; F32.A Depression, unspecified; F17.290 Nicotine dependence, other tobacco product, uncomplicated; K76.0 Fatty (change of) liver, not elsewhere classified; E66.9 Obesity, unspecified; Z32.01 Encounter for pregnancy test, result positive; Z79.899 Other long term (current) drug therapy; Z3A.01 Less than 8 weeks gestation of pregnancy; Z68.41 Body mass index [BMI] 40.0-44.9, adult
CPT/HCPCS: 96376; 96374; 96375; 99284; 99285; 36415 ×2; 80053 ×3; 80076; 82150; 83690 ×2; 85025 ×3; 85610 ×2; 81001 ×2; 81025 ×2; 84702; 76705; G0378 ×2; J2270; J1200; J2765; J2405; J1170 ×2; J1885

== ENCOUNTER 2022-08-10 21:28 | Emergency (ER) | payer OTHER ==
[2022-08-10 21:40] VITALS: BP 123/77; PULSE 84; RESP 16; TEMP 98.2
[2022-08-10 22:17] LABS: Basophils % (A) 0 %; Eosinophils # (A) 0.2 k/uL (0-0.7); Eosinophils % (A) 1 %; HCT 38.9 % (34.0-46.0); Lymphocytes # (A) 2.3 k/uL (1.0-4.8); Lymphocytes % (A) 19 %; MCH 26.3 pg (25.0-35.0); MCHC 33.3 g/dL (31.0-37.0); MCV 79.1 fL (80.0-100.0); Mean Platelet Volume 8.4; Monocytes # (A) 0.3 k/uL (0-1.0); Monocytes % (A) 2 %; Neutrophils # (A) 9.3 k/uL (1.3-7.7); Neutrophils % (A) 76 %; Platelet Count 272 k/uL (150-450); RBC 4.92 m/uL (3.80-5.40); RDW 13.9 % (11.5-15.5); WBC 12.2 k/uL (3.8-10.6)
[2022-08-10] MEDS ORDERED: SODIUM CHLORIDE 0.9% 1,000 ML IV STA (22:17)
[2022-08-10] MEDS ORDERED: SODIUM CHLORIDE 0.9% 500 ML 500 ML IV STA (22:17)
[2022-08-10] MEDS ORDERED: diphenhydrAMINE 50 MG/ML 1 ML VIAL IVP STA (22:17)
[2022-08-10] MEDS ORDERED: ACETAMINOPHEN IV (For NPO) 1,000 MG in EMPTY BAG 1 BAG IVPB STA (22:17)
[2022-08-10] MEDS ORDERED: METOCLOPRAMIDE 5 MG/ML 2 ML VIAL IVP STA (22:17)
--- NOTE | 2022-08-10 22:18 | ED ---
Recheck HPI - General Chief Complaint: Abdominal Pain Stated Complaint: recheck Time Seen by Provider: 08/10/22 22:16 Source: patient, RN notes reviewed, old records reviewed Mode of arrival: ambulatory Limitations: no limitations - History of Present Illness Initial Comments: This is a 19-year-old female DF for evaluation today. Patient states she was given strict diet after last hospitalization but had a hot pocket for lunch today. Severe pain afterwards. Patient had a significant amount of nausea vomiting after that and after nausea vomiting or symptoms have screen was improved. Patient is having mild abdominal cramping but no specific or s urgeries pain currently. -: hour(s) Returns Today for: persistent/worsening pain related to initial visit Symptoms Since Prior Visit: worsening pain Context: planned re-check Associated Symptoms: abdominal pain Treatments Prior to Arrival: Given Pain Meds on - Related Data Home Medications Medication Instructions Recorded Confirmed No Known Home Medications 08/06/22 08/06/22 Allergies Allergy/AdvReac Type Severity Reaction Status Date / Time No Known Allergies Allergy Verified 08/06/22 07:56 Review of Systems ROS Statement: Those systems with pertinent positive or pertinent negative responses have been documented in the HPI. ROS Other: All systems not noted in ROS Statement are negative. Past Medical History Past Medical History: No Reported History Additional Past Medical History / Comment(s): MISCARRIAGE, gall stones History of Any Multi-Drug Resistant Organisms: None Reported Past Surgical History: Tonsillectomy Additional Past Surgical History / Comment(s): d&C Past Anesthesia/Blood Transfusion Reactions: No Reported Reaction Past Psychological History: Anxiety, Depression Smoking Status: Never smoker, Vaper Past Alcohol Use History: None Reported Past Drug Use History: None Reported - Past Family History Mother Family Medical History: No Reported History General Exam - General Exam Comments Initial Comments: Positive Limitations: no limitations General appearance: alert, in no apparent distress, obese Head exam: Present: atraumatic, normocephalic, normal inspection Eye exam: Present: normal appearance, PERRL, EOMI. Absent: scleral icterus, conjunctival injection, periorbital swelling ENT exam: Present: normal exam, mucous membranes moist Neck exam: Present: normal inspection. Absent: tenderness, meningismus, lymphadenopathy Respiratory exam: Present: normal lung sounds bilaterally. Absent: respiratory distress, wheezes, rales, rhonchi, stridor Cardiovascular Exam: Present: regular rate, normal rhythm, normal heart sounds. Absent: systolic murmur, diastolic murmur, rubs, gallop, clicks GI/Abdominal exam: Present: soft, tenderness, normal bowel sounds. Absent: distended, guarding, rebound, rigid Extremities exam: Present: normal inspection, full ROM, normal capillary refill. Absent: tenderness, pedal edema, joint swelling, calf tenderness Back exam: Present: normal inspection Neurological exam: Present: alert, oriented X3, CN II-XII intact Psychiatric exam: Present: normal affect, normal mood Skin exam: Present: warm, dry, intact, normal color. Absent: rash Course Vital Signs 08/10/22 21:37 Temperature 98.2 F Pulse Rate 84 Respiratory 16 Rate Blood Pressure 123/77 O2 Sat by Pulse 100 Oximetry - Reevaluation(s) Reevaluation #1: 08/10/22 23:32 Medical record is reviewed Reevaluation #2: 08/10/22 23:32 Patient improved here in the ER Reevaluation #3: 08/10/22 23:32 Patient informed results and questions have been answered Medical Decision Making - Medical Decision Making 21 female Camila with biliary colic, patient does have outpatient scheduled elective for tomorrow and surgical consult for gallbladder surgery. Patient's pain is controlled and she can be discharged - Lab Data Result diagrams: 08/10/22 22:00 08/10/22 22:00 Lab Results 08/10/22 08/10/22 08/10/22 Range/Units 22:00 22:00 22:00 WBC 12.2 H (3.8-10.6) k/uL RBC 4.92 (3.80-5.40) m/uL Hgb 13.0 (11.4-16.0) gm/dL Hct 38.9 (34.0-46.0) % MCV 79.1 L (80.0-100.0) fL MCH 26.3 (25.0-35.0) pg MCHC 33.3 (31.0-37.0) g/dL RDW 13.9 (11.5-15.5) % Plt Count 272 (150-450) k/uL MPV 8.4 Neutrophils % 76 % Lymphocytes % 19 % Monocytes % 2 % Eosinophils % 1 % Basophils % 0 % Neutrophils # 9.3 H (1.3-7.7) k/uL Lymphocytes # 2.3 (1.0-4.8) k/uL Monocytes # 0.3 (0-1.0) k/uL Eosinophils # 0.2 (0-0.7) k/uL Basophils # 0.0 (0-0.2) k/uL Sodium 139 (137-145) mmol/L Potassium 3.9 (3.5-5.1) mmol/L Chloride 103 (98-107) mmol/L Carbon Dioxide 23 (22-30) mmol/L Anion Gap 13 mmol/L BUN 8 (7-17) mg/dL Creatinine 0.68 (0.52-1.04) mg/dL Est GFR (CKD-EPI)AfAm >90 (>60 ml/min/1.73 sqM) Est GFR (CKD-EPI)NonAf >90 (>60 ml/min/1.73 sqM) Glucose 94 (74-99) mg/dL Calcium 9.9 (8.4-10.2) mg/dL Total Bilirubin 0.5 (0.2-1.3) mg/dL AST 50 H (14-36) U/L ALT 72 H (4-34) U/L Alkaline Phosphatase 108 (38-126) U/L Total Protein 7.2 (6.3-8.2) g/dL Albumin 4.6 (3.5-5.0) g/dL Amylase 45 (30-110) U/L Lipase 94 (23-300) U/L HCG, Quant 87176.0 mIU/mL Urine Color Yellow Urine Appearance Cloudy H (Clear) Urine pH 5.5 (5.0-8.0) Ur Specific [place] 1.028 (1.001-1.035) Urine Protein Trace H (Negative) Urine Glucose (UA) Negative (Negative) Urine Ketones Trace H (Negative) Urine Blood Small H (Negative) Urine Nitrite Negative (Negative) Urine Bilirubin Negative (Negative) Urine Urobilinogen 3.0 (<2.0) mg/dL Ur Leukocyte Esterase Large H (Negative) Urine RBC 2 (0-5) /hpf Urine WBC 6 H (0-5) /hpf Urine WBC Clumps Rare H (None) /hpf Ur Squamous Epith Cells 14 H (0-4) /hpf Urine Bacteria Rare H (None) /hpf Urine Mucus Many H (None) /hpf - Radiology Data Radiology results: report reviewed (Ultrasound gallbladder is positive for choledocholithiasis), image reviewed Disposition Clinical Impression: Abdominal pain, Choledocholithiasis, Biliary colic, Disposition: HOME SELF-CARE Condition: Good Instructions (If sedation given, give patient instructions): Biliary Colic (ED), Abdominal Pain in (ED) Is patient prescribed a controlled substance at d/c from ED?: No Referrals: Sophie Coles MD [Primary Care Provider] - 1-2 days Time of Disposition: 23:30
[2022-08-10 22:27] LABS: ALT 72 U/L (4-34); AST 50 U/L (14-36); African American GFR (CKD) >90 (>60 ml/min/1.73 sqM); Albumin 4.6 g/dL (3.5-5.0); Alkaline Phosphatase 108 U/L (38-126); Amylase 45 U/L (30-110); Anion Gap 13 mmol/L; Blood Urea Nitrogen 8 mg/dL (7-17); Calcium 9.9 mg/dL (8.4-10.2); Carbon Dioxide 23 mmol/L (22-30); Chloride 103 mmol/L (98-107); Glucose 94 mg/dL (74-99); Lipase 94 U/L (23-300); Non-African American GFR(CKD) >90 (>60 ml/min/1.73 sqM); Potassium 3.9 mmol/L (3.5-5.1); Sodium 139 mmol/L (137-145); Total Bilirubin 0.5 mg/dL (0.2-1.3); Total Protein 7.2 g/dL (6.3-8.2)
[2022-08-10 22:30] LABS: Appearance,Urine Cloudy (Clear); Bacteria,Urine Rare /hpf; Bilirubin,Urine Negative (Negative); Blood,Urine Small (Negative); Color,Urine Yellow; Glucose,Urine (UA) Negative (Negative); Ketones,Urine Trace (Negative); Leukocyte Esterase,Urine Large (Negative); Mucus,Urine Many /hpf; Nitrite,Urine Negative (Negative); PH, Urine 5.5 (5.0-8.0); Protein,Urine Trace (Negative); RBC,Urine 2 /hpf (0-5); Specific Gravity,Urine 1.028 (1.001-1.035); Squamous Epithelial Cell,Urine 14 /hpf (0-4); WBC,Urine 6 /hpf (0-5)
[2022-08-10] MEDS ORDERED: SODIUM CHLORIDE 0.9% 1,000 ML IV SCH (22:30)
--- NOTE | 2022-08-10 22:54 | US ---
EXAMINATION TYPE: US gallbladder DATE OF EXAM: 08/10/2022 COMPARISON: 08/05/22 CLINICAL HISTORY: . RUQ pain that worsened today. TECHNIQUE: Multiple sonographic images of the right upper quadrant are obtained. FINDINGS: EXAM MEASUREMENTS: Liver Length: 15.4 cm Gallbladder Wall: 0.3 cm CBD: 0.71 cm Right Kidney: 12.1 x 5.5 x 4.8 cm HOUSEHOLD PERSONAL ASSISTANT NOTES: Pancreas: Tail obscured by overlying bowel gas. Parts visualized wnl Liver: Increased attenuation Gallbladder: Multiple echogenic foci seen Evidence for sonographic Baires's sign: No CBD: Dilated at 0.7 cm Right Kidney: wnl IMPRESSION: Numerous gallstones. Common bile duct is slightly increased and could relate to bladder dysfunction. No dilation of the intrahepatic bile ducts.
[2022-08-11 14:13] LABS: Magnesium 1.9 mg/dL (1.6-2.3); Phosphorus 4.2 mg/dL (2.5-4.5)
== END 2022-08-11 00:15 | disposition home or self-care (01) ==
LOC: EC 21:28
DX: O99.619 Diseases of the digestive system complicating pregnancy, unspecified trimester (principal); K80.70 Calculus of gallbladder and bile duct without cholecystitis without obstruction; F17.290 Nicotine dependence, other tobacco product, uncomplicated; Z3A.00 Weeks of gestation of pregnancy not specified
CPT/HCPCS: 36415; 80053; 82150; 83690; 83735; 84100; 85025; 81001; 84702; 76705; 99284; 96375; 96361; 96374; J1200; J2765; J0131

== ENCOUNTER 2022-09-20 07:50 | Day surgery (SDC) | payer OTHER ==
[2022-09-17 09:45] VITALS: BMI 40.3
--- NOTE | 2022-09-20 07:34 | P.GSHP ---
History of Present Illness H&P Date: 09/20/22 Chief Complaint: Chronic cholecystitis 21-year-old female recently hospitalized with choledocholithiasis. Patient by history and lab values passed the stone spontaneously. No ERCP performed. No recent change in the color of her skin urine or stool. Patient had a termination since she was last seen in the office reportedly. Here today for elective cholecystectomy. Past Medical History Past Medical History: No Reported History Additional Past Medical History / Comment(s): gall stones,Covid Sep 2021,miscarriage History of Any Multi-Drug Resistant Organisms: None Reported Past Surgical History: Tonsillectomy Additional Past Surgical History / Comment(s): d&C Past Anesthesia/Blood Transfusion Reactions: No Reported Reaction Additional Past Anesthesia/Blood Transfusion Reaction / Comment(s): no hx blood transfusion Smoking Status: Never smoker - Past Family History Mother Family Medical History: No Reported History Medications and Allergies Home Medications Medication Instructions Recorded Confirmed Type No Known Home Medications 08/06/22 09/17/22 History Allergies Allergy/AdvReac Type Severity Reaction Status Date / Time No Known Allergies Allergy Verified 09/17/22 09:32 Surgical - Exam Physical exam: General: Well-developed, well-nourished HEENT: Normocephalic, sclerae nonicteric Abdomen: Nontender, nondistended Extremities: No edema Neuro: Alert and oriented Assessment and Plan (1) Choledocholithiasis Narrative/Plan: 21-year-old female with chronic cholecystitis and choledocholithiasis. We'll proceed with laparoscopic, possible open cholecystectomy at this time. Risks of bleeding, infection, bile leak, bile duct injury, retained common bile duct stone, trocar injury, conversion to an open procedure, hernia, anesthesia related complications were reviewed. The patient understands and wishes to proceed. Status: Acute Code(s): K80.50 - CALCULUS OF BILE DUCT W/O CHOLANGITIS OR CHOLECYST W/O OBST SNOMED Code(s): 890673245
[~2022-09-20 07:50] MED LIST changes: +ACETAMINOPHEN TAB 500 MG TAB PO PRN; +DEXAMETHASONE SOD PHOSPHATE 4 MG/ML 1 ML VIAL IV ONE; +HEPARIN SODIUM,PORCINE/PF 5,000 UNIT/0.5 ML SYRINGE SQ PRN; +HYDROmorphone 0.5 MG/0.5 ML SYRINGE IVP PRN; +LACTATED RINGERS 1,000 ML IV SCH; +LIDOCAINE 1% (10MG/ML) FOR IV START INTRADERMA PRN; +MIDAZOLAM 2 MG/2 ML VIAL IV PRN; +ONDANSETRON 4 MG/2 ML VIAL IVP ONE; -Pre Op ABX Message 1 EACH MISC MISCELLANE ONE; +ceFAZolin 3 GM in SODIUM CHLORIDE 0.9% 100 ML IVPB PRN
[2022-09-20] MEDS ORDERED: NEOSTIGMINE 1 MG/ML 10 ML VIAL ONE (08:48)
[2022-09-20] MEDS ORDERED: LIDOCAINE 2% INJ 20 MG/ML (2 ML VIAL) ONE (08:48)
[2022-09-20] MEDS ORDERED: KETOROLAC 15 MG/ML 1 ML VIAL ONE (08:48)
[2022-09-20] MEDS ORDERED: HYDROmorphone (PF) 1 MG/ML ONE (08:48)
[2022-09-20] MEDS ORDERED: ROCURONIUM 10 MG/ML (5 ML VIAL) IV ONE (08:48)
[2022-09-20] MEDS ORDERED: SUCCINYLCHOLINE CHLORIDE 200 MG/10 ML VIAL IV ONE (08:48)
[2022-09-20] MEDS ORDERED: MIDAZOLAM 2 MG/2 ML VIAL ONE (08:48)
[2022-09-20] MEDS ORDERED: GLYCOPYRROLATE 0.2 MG/ML 2 ML VIAL ONE (08:48)
[2022-09-20] MEDS ORDERED: fentaNYL (PF) 50 MCG/ML 2 ML AMP ONE (08:48)
[2022-09-20] MEDS ORDERED: PROPOFOL 10 MG/ML 20 ML VIAL IV ONE (08:48)
[2022-09-20] MEDS ORDERED: BUPIVACAIN-EPI 0.25%-1:200,000 30 ML VIAL SQ ONE ×2 (08:48→09:17)
--- NOTE | 2022-09-20 10:00 | P.OP ---
Date of Procedure: 09/20/22 Procedure(s) Performed: PREOPERATIVE DIAGNOSIS: Chronic cholecystitis with choledocholithiasis POSTOPERATIVE DIAGNOSIS: Same PROCEDURE: Laparoscopic cholecystectomy SURGEON: Marin EBL: Minimal see anesthesia record ANESTHESIA: Gen. COMPLICATIONS: None OPERATIVE PROCEDURE: The patient was brought and placed on the operating room table in the supine position. The patient was placed under general anesthesia at that time. The abdomen was prepped and draped in the usual sterile fashion. A small vertical infraumbilical incision was made. The fascia was grasped with the Guera forceps. The fascia was retracted anteriorly. The Veress needle was advanced into the peritoneal cavity. The saline drop test was normal. Insufflation took place up to 15 mmHg. A 5 mm optical trocar was advanced and the peritoneal cavity. 2 additional 5 mm trochars were placed in the right upper quadrant under direct visualization. A 12 mm trocar was advanced into the epigastric incision site. The gallbladder was retracted superiorly and laterally. The peritoneum overlying the infundibulum was bluntly dissected. The patient's cystic duct was visualized. The junction between the cystic duct common and hepatic duct was identified. The critical view of safety was achieved after blunt dissection. The cystic duct was then divided after placement of 3 12 mm clips on the patient's side and one on the specimen side. The cystic artery was identified and clipped as well. A small vessel was seen along the gallbladder fossa and clipped as well. The gallbladder was then removed from the liver bed using electrocautery. The gallbladder was then removed from the epigastric trocar site with an Endo Catch bag. The gallbladder fossa was irrigated with saline. There was no evidence of any bleeding or biliary drainage seen. The fascia at the 12 millimeter site was closed using a Dimitris-Mukesh 0 Vicryl stitch. The trochars were then removed. The skin at all 4 sites was closed using a 4-0 Monocryl stitch. Skin glue was utilized on the incision sites. At the end of this procedure the sponge and needle counts were correct. DISPOSITION: Stable to the recovery room
[2022-09-20 10:13] VITALS: TEMP 96.9
[2022-09-20] MEDS ORDERED: LACTATED RINGERS 1,000 ML IV ONE (10:55)
[2022-09-20 11:44] VITALS: RESP 16
[2022-09-20] MEDS ORDERED: ACETAMINOPHEN TAB 325 MG TAB PO SCH (12:00)
[2022-09-20 12:19] VITALS: BP 113/69; PULSE 74
[2022-09-20] MEDS ORDERED: IBUPROFEN 600 MG TAB PO SCH (13:00)
== END 2022-09-20 12:40 | disposition home or self-care (01) ==
LOC: OR 07:50
PROVIDERS: ATTEND Surgery
DX: K80.10 Calculus of gallbladder with chronic cholecystitis without obstruction (principal); F32.A Depression, unspecified; F41.9 Anxiety disorder, unspecified; E66.9 Obesity, unspecified; Z68.41 Body mass index [BMI] 40.0-44.9, adult; Z90.89 Acquired absence of other organs; Z86.16 Personal history of COVID-19; Z87.19 Personal history of other diseases of the digestive system; Z98.891 History of uterine scar from previous surgery
CPT/HCPCS: 47562; 81025; 88304; J2250; J0330; J1100; J2710; J0690; J2405; J3010; J1170; J1885; J2704; J1790; J1644; J2001

== ENCOUNTER → 2025-02-28 | Outpatient (CLI) | payer OTHER ==
--- NOTE | 2025-02-28 16:56 | MR ---
EXAMINATION TYPE: MR brain wo con DATE OF EXAM: 02/28/2025 4:49 PM COMPARISON: None. CLINICAL INDICATION: Female, 24 years old with history of R51.9 Headache, unspecified, Constant heada ches TECHNIQUE: Multiplanar and multispin-echo imaging of the brain was performed . FINDINGS: The ventricles, basal cisterns and sulci overlying the cerebral convexities are within normal limits. There is no evidence for midline shift or mass effect. Acute intracranial hemorrhage or extra-axial collection is not evident. The brain parenchyma reveals no abnormal increased signal. No acute edema is identified. The mastoid air cells are well-aerated. Mild chronic maxillary and ethmoidal sinusitis. IMPRESSION: Unremarkable MRI of the brain. Mild chronic maxillary and ethmoidal sinusitis. [facility], , 02/28/2025 4:54 PM
== END | disposition home or self-care (01) ==
LOC: RADMRIMAIN 16:17
PROVIDERS: ATTEND Family Medicine
DX: J32.2 Chronic ethmoidal sinusitis (principal)
CPT/HCPCS: 70551